=== PATIENT | male | born 1940 | race Caucasian/White ===

== ENCOUNTER → 2018-04-13 | Outpatient (CLI) | payer MEDICARE ==
[~2018-04-13] MED LIST: ASPIRIN81 M1 PO; CEFTIN250 MG PO; CIPROFLOXACIN500 MG PO; DAYPRO600 M1 PO; FLUOXETINE40 MG PO; LASIX40 MG PO; LISINOPRIL2.5 MG PO; PREDNICOT20 MG PO; PRILOSEC20 MG PO; PROPRANOL; PROPRANOLOL HC120 M1 PO; SYNTHROID,LEVO50 MCG PO; SYNTHROID,LEVO75 MCG PO; TOPROL XL50 MG PO; VIBRAMYCIN100 MG PO; VISKEN5 MG PO; VITAMIN D5000 I2 PO; ZESTRIL10 MG PO
== END | disposition home or self-care (01) ==
LOC: RAD 15:10
DX: M06.871 Other specified rheumatoid arthritis, right ankle and foot (principal)

== ENCOUNTER 2019-03-07 20:14 | Inpatient (IN) | payer OTHER ==
[~2019-03-07] VITALS: Ht 175.2 cm; Wt 72.1 kg
--- NOTE | ~2019-03-07 | PR ---
[place], [place] PROGRESS NOTE NAME: GENO RICHARDSON [facility] #: [id number] UNIT #: [id number] ROOM: 403 DOCTOR: CHRIS ALVARENGA MD BIRTHDATE: [birth year] DOS: 03/14/2019 SUBJECTIVE: The patient continues to feel better. He says he is eating better and taking more fluids. OBJECTIVE: VITAL SIGNS: Blood pressure 120/60, heart rate of 66 beats per minute, breathing 20 times per minute, temperature 98.2 degrees Fahrenheit. GENERAL APPEARANCE: The patient is alert and oriented x 3, in no visible distress. Generalized weakness. HEENT AND NECK: Sclerae are icteric. Jaundiced. CARDIOVASCULAR SYSTEM: Heart rate is regular in rate and rhythm. S1 and S2 normally audible. LUNGS: Clear to auscultation. ABDOMEN: Soft, nontender. No obvious organomegaly. Bowel sounds are present. EXTREMITIES: Without significant cyanosis or edema. IMPRESSION AND PLAN: 1. The patient with apparently metastatic malignant disease. Liver biopsies show cell atypia, atypical cells. The patient is waiting to go to rehab and Oncology consult can be obtained to the snf. 2. Obstructive jaundice from liver malignancy. Overall improved liver enzymes and bilirubin. 3. Acute kidney failure of vasomotor type, resolved with hydration with intravenous fluids. 4. Adult failure to thrive. The patient is working with physical therapy. 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 5. Major depression, recurrent, moderate, being followed by Psychiatry. CHRIS ALVARENGA MD CM:PNTRANS [phone] CHRIS ALVARENGA MD 03/15/19 0001 interface
--- NOTE | ~2019-03-07 | CON ---
[place], [place] REPORT OF CONSULTATION [id number] #: [id number] ROOM: 403 DOCTOR: PHD RADHAMES PEREZ BIRTHDATE: [birth year] DOS: 03/08/2019 HISTORY OF PRESENT ILLNESS: The patient is an 78-year-old male referred by Dr. Bhagat to determine the appropriateness of placement on the [facility]. At the present time, the patient is on the 4th floor at [facility]. The patient's history is limited due to his condition. He reports that he is 3 or 4 times and has 8 children. He states that two or three of his children have that he cannot recall for sure. 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 He lives alone with neighbors checking on him. He states that he did not eat any food for a month and was lying on the floor for an undetermined amount of time before coming to the hospital. He denied alcohol and illegal drug use. He stated that he is a former smoker. PAST MEDICAL HISTORY: Per the patient's medical record, he has a history of congestive heart failure, hypothyroidism, rheumatoid arthritis, and hypertension. MEDICATIONS: Rocephin, [place]. The patient was lying comfortably in bed, in no apparent distress. He was awake, alert and oriented to person and place. He gave the month as February and the year as 2018. He could name Yomi as the current president, but gave Eddie as the past president. He could not name any current events. Mood was "very depressed." Affect was blunted. He denied current suicidal ideation, but acknowledged feeling as though he wanted to kill himself a few days ago. He now endorsed passive thoughts of . He states that he would never kill himself due to his confucianist beliefs. He has seen a psychiatrist in the past to address his depression. He endorsed current symptoms such as hopelessness, helplessness, trouble staying asleep, poor appetite. He is very worried about his current health. Speech was soft and slow. Expressive and receptive language appeared within normal limits conversationally. The patient reported several times that he felt confused. There were some short and long-term memory gaps present in conversation. DIAGNOSIS: Major depressive disorder, recurrent, severe. PLAN: The patient states he would be agreeable to inpatient psychiatric treatment to address his significant levels of depression and passive suicidal thinking. I will continue to follow the patient as he is not medically stable at this time. Once he is medically stable, I will discuss the case with [facility] staff. Thank you very much for this consult and appropriate placement from a psychological prospective. [place], [place] REPORT OF CONSULTATION NAME: GENO RICHARDSON UNIT #: [id number] ROOM: 403 DOCTOR: BRENDA, PHD RADHAMES BIRTHDATE: [birth year] Anisha Perez, PhD CM:CONSTR:REPORT OF CONSULTATION 1453 03/08/19 2259 interface
--- NOTE | ~2019-03-07 | PR ---
[place], [place] PROGRESS NOTE NAME: GENO RICHARDSON UNIT #: [id number] ROOM: 403 DOCTOR: CHRIS ALVARENGA MD BIRTHDATE: [birth year] DOS: 03/09/2019 SUBJECTIVE: The patient quite weak, asking me to take care of him, and make medically related decisions for him because he does not have any durable medical power of corporate attorney and he is not in touch with his children and does not have any other close relatives. OBJECTIVE: GENERAL APPEARANCE: The patient is alert and oriented x 3, in no visible distress. Jaundice and generalized weakness. VITAL SIGNS: Blood pressure 96/74, heart rate of 56 beats per minute, breathing 18 times per minute, temperature 98 degrees Fahrenheit. HEENT AND NECK: Exam within normal limits. CARDIOVASCULAR SYSTEM: Heart rate is regular in rate and rhythm. S1 and S2 normally audible. LUNGS: Clear to auscultation. ABDOMEN: Soft, nontender. No obvious organomegaly. Bowel sounds are present. EXTREMITIES: Without significant cyanosis or edema. IMPRESSION: 1. Advanced adult failure to thrive. The patient is working with physical therapy. 2. Metastatic liver disease on CT scan of the abdomen with jaundice. Dr. Haas, the educational resource coordinator is following. Alpha fetoprotein elevated to more than 1000. 3. Acute hepatitis panel was negative. 4. Acute kidney failure, being treated with hydration. Nephrology is following. BUN and creatinine improved to 128 and 2.3 with normal serum electrolytes. 5. The patient has suicidal ideas, has agreed to go to [facility] for psych care after his medical treatment is complete. The patient is alert and oriented and he has asked me to make medically related decisions for him. [place], [place] PROGRESS NOTE NAME: GENO RICHARDSON UNIT #: [id number] ROOM: 403 DOCTOR: CHRIS ALVARENGA MD BIRTHDATE: [birth year] CHRIS ALVARENGA MD CM:PNTRANS [phone] CHRIS ALVARENGA MD 03/10/19 0256 interface
--- NOTE | ~2019-03-07 | PR ---
[place], [place] PROGRESS NOTE NAME: GENO RICHARDSON [facility] #: [id number] UNIT #: [id number] ROOM: 403 DOCTOR: PHD RADHAMES PEREZ BIRTHDATE: [birth year] DOS: 03/15/2019 SUBJECTIVE: I followed up with the patient regarding his depression. He reports that his mood has improved. He attributes his improvement to increased focus on his episcopalian beliefs. He states he convincingly denies suicidal ideation, plan, and intent. He continues to experience some passive suicidal ideation, but refocuses on his episcopalian beliefs to help distract him from this thought. Mood appeared to be less depressed. Affect was restricted in range. Discussed coping strategies for his depression and pain. Utilize CBT and supportive therapy interventions. The patient appeared to benefit. DIAGNOSIS: Major depressive disorder, recurrent, severe. PLAN: The patient's mood appears to have improved from last week. He is able to identify active coping strategies to deal with his depression. He appears to be appropriate to be discharged from a psychological perspective. Anisha Perez, PhD CM:PNTRANS [phone] PHD RADHAMES PEREZ 03/15/19 1510 interface
--- NOTE | ~2019-03-07 | WRIGHTHP ---
[place], [place] PATIENT HISTORY AND PHYSICAL EXAM NAME: GENO RICHARDSON [facility] #: [id number] UNIT #: [id number] ROOM: 403 DOCTOR: CHRIS ALVARENGA MD BIRTHDATE: [birth year] DOS: HISTORY OF PRESENT ILLNESS: The patient is an 78-year-old gentleman with a past medical history of: 1. Obesity. 2. Diastolic type congestive heart failure, chronic. 3. Rheumatoid arthritis. 4. Hypothyroidism. 5. Gastroesophageal reflux disease and esophagitis. 6. Vitamin D deficiency. 7. Benign essential hypertension. 8. Pacemaker placement for bradycardia. The patient presented to the Emergency Department at [facility] with generalized weakness, failure to thrive and he was found to be jaundiced, very weak and acute kidney failure and recommended for admission and further management by Dr. Nestor Khan. After admission, the patient says he has not been eating for about a month because he is unable to cook and he lives by himself and he has been progressively getting weaker. Some complaints of abdominal discomfort. REVIEW OF SYSTEMS: RESPIRATORY: No increasing shortness of breath. GASTROINTESTINAL: No complaint of nausea, vomiting, diarrhea, constipation. CARDIOVASCULAR SYSTEM: No complains of chest pains or palpitations. FAMILY HISTORY: Noncontributory. HOME MEDICATIONS: The patient does not remember his home medications. ALLERGIES: No known drug allergies. PHYSICAL EXAMINATION: GENERAL: Alert, oriented x 3, very weak and jaundiced. HEENT AND NECK: Extraocular movements are intact. Sclerae are anicteric. Oral mucosa is moist and clean. No obvious facial weakness. Neck is supple without any lymphadenopathy. No thyromegaly. No JVD. No carotid arterial bruits. LUNGS: Clear to auscultation. No wheezing. No rhonchi. CARDIOVASCULAR SYSTEM: Heart rate is regular in rate and rhythm. S1 and S2 normally audible. No significant murmur or any other abnormal cardiac sounds. ABDOMEN: Some generalized abdominal discomfort on palpation. EXTREMITIES: Without significant cyanosis or edema. Warm to touch. CENTRAL NERVOUS SYSTEM: Alert and oriented x 3. Cranial nerves II-XII are intact. Speech is normal. The patient is able to move all extremities. Normal muscle strength. Deep tendon reflexes are equal on both sides. Plantars were downgoing. LABORATORY DATA: White cell count of 11,000, hemoglobin 11.7, BUN and creatinine 148 and 3.2, bilirubin elevated to 4.7, elevated AST 446, ALT 358, alkaline phosphatase 473. [place], [place] PATIENT HISTORY AND PHYSICAL EXAM NAME: GENO RICHARDSON UNIT #: [id number] ROOM: 403 DOCTOR: CHRIS ALVARENGA MD BIRTHDATE: [birth year] IMPRESSION: 1. The patient with jaundice, elevated liver enzymes and bilirubin. I have consulted catalyst unit operator, Dr. Haas to see and I ordered ultrasound of the liver, abdomen and pelvis for further evaluation. The patient to be hydrated with normal saline and diet as tolerated. 2. Acute hepatitis, being checked with acute hepatitis panel and to be followed closely. INR elevated at 1.7, signs of acute liver failure. 3. Acute kidney failure. Nephrology consulted. The patient is being hydrated slowly, possible hepatorenal syndrome. 4. Adult failure to thrive. The patient is living by himself and unable to take care of himself. director of perioperative services and case management have been consulted. 5. Some suicidal ideas. Psychiatry and psych social services aide have been consulted. 6. No significant signs of urinary infection. CT scan of the head without any acute changes. Ammonia level was normal. 7. Lactic acid level elevation 2.3, treated with hydration with normal saline. CHRIS ALVARENGA MD CM:HISPHYS:PATIENT HISTORY AND PHYSICAL EXAMINATION 1119 [id number] CHRIS ALVARENGA MD 03/08/19 1448 interface
--- NOTE | ~2019-03-07 | PR ---
[place], [place] PROGRESS NOTE NAME: GENO RICHARDSON [facility] #: [id number] UNIT #: [id number] ROOM: 403 DOCTOR: PHD RADHAMES PEREZ BIRTHDATE: [birth year] DOS: 03/09/2019 SUBJECTIVE: I followed up with the patient regarding his depression. He states that he is depressed. He states that he is "depressed and numb" The patient appeared despondent. He continued to endorse passive suicidal ideation. He denied active suicidal ideation, plan, and intent. Discussed events. Discussed how his feelings of helplessness and hopelessness are contributing to his emotional status and ways he can help feel more in control in the situation utilized CBT and supportive therapy interventions. The patient appeared to benefit. ASSESSMENT: Major depressive disorder, recurrent, severe. PLAN: I will follow up with the patient on Wednesday and if he has any behavioral health needs before then, please contact the [facility]. Thank you very much for this consult. Anisha Perez, PhD CM:EDELMIRA [phone] PHD RADHAMES PEREZ 03/10/19 0108 interface
--- NOTE | ~2019-03-07 | PR ---
[place], [place] PROGRESS NOTE NAME: GENO RICHARDSON [facility] #: [id number] UNIT #: [id number] ROOM: 403 DOCTOR: GARFIELD RODRIGUES MD BIRTHDATE: [birth year] DOS: SUBJECTIVE: The patient is tired, does not have any new complaints. PHYSICAL EXAMINATION: VITAL SIGNS: Blood pressure is 103/53, pulse of 66, respirations 18, temperature 98.0. LUNGS: Diminished breath sounds. HEART: Regular. ABDOMEN: Obese, soft, nontender. EXTREMITIES: Without any edema. LABORATORY DATA: This morning shows a glucose of 95, BUN 71, creatinine 1.48, sodium 147, potassium 3.8, chloride 118, bicarbonate 22, SGOT 210, SGPT 162, alkaline phosphatase 406. WBC count is 7.6, hemoglobin 10.1, hematocrit 32.5, platelets 128. ASSESSMENT AND PLAN: 1. Diffuse mets to the liver. This is most likely primary colon cancer versus primary liver cancer. Liver biopsy was ordered yesterday. No pathology available. 2. Adult failure to thrive, may require short term SNF placement. Social Service will be consulted. 3. History of major depression with suicidal tendencies, was seen by Psych. Initial suggestion was to go to Behavioral Health Unit, await for psych decision on discharge planning. GARFIELD RODRIGUES MD CM:PNTRANS [phone] GARFIELD RODRIGUES MD 03/11/19 1515 interface
--- NOTE | ~2019-03-07 | PR ---
[place], [place] PROGRESS NOTE [id number] #: [id number] ROOM: 403 DOCTOR: GARFIELD RODRIGUES MD BIRTHDATE: [birth year] DOS: 03/12/2019 SUBJECTIVE: The patient is about the same, does not have any new complaints. OBJECTIVE EXAMINATION: GENERAL: He is awake and alert and oriented. VITAL SIGNS: Pressure is 117/66, pulse of 80, respirations 18, temperature 98.5. LUNGS: Clear. HEART: Regular. ABDOMEN: Soft. EXTREMITIES: Without any edema. ASSESSMENT AND PLAN: 1. Metastatic liver disease. Liver biopsy was done and pending. 2. Adult failure to thrive. He would benefit from long-term placement. He does not have any close family members. Social Service will be consulted for placement. 3. Major depression. Dr. Taylor does not think he is a candidate for admission to [facility]. GARFIELD RODRIGUES MD CM:PNTRANS [phone] GARFIELD RODRIGUES MD 03/12/192105 interface
--- NOTE | ~2019-03-07 | CON ---
[place], [place] REPORT OF CONSULTATION [id number] UNIT #: [id number] ROOM: 403 DOCTOR: TAJ DUQUE MDPARLIERMELINA BIRTHDATE: [birth year] DOS: 03/10/2019 GASTROENDOSCOPIC CONSULTATION REPORT HISTORY OF PRESENT ILLNESS: The patient has presented with lethargy and unresponsiveness, not caring for herself with elevated INR of 1.7, serum ammonia normal, lactic acid elevation with white blood cells of 13, H and H of 12 and 37, platelets of normal, comprehensive metabolic panel of renal failure, BUN of 157, creatinine 3.3 with abnormal liver function test, SGOT and SGPT of 500 and 400 respectively, and alkaline phosphatase of [address] scan of the head had no acute intracranial abnormality. CBC and comprehensive metabolic panel repeatedly reviewed and assessed. He was concerned about presence of masses in the liver. Alpha-fetoprotein was ordered and marker was 1014 consistent with hepatoma. Liver biopsy for confirmation was discussed with Radiology, Dr. Moreno, and that was already performed today and suspected to be positive. His supportive therapy has led to significant improvement of his BUN and creatinine. His CBC differential has stabilized, more hydrated, more alert, and more oriented, all has been recognized. His viral hepatitis has been negative. He lives by himself, and apparently, a lonely life. PAST MEDICAL HISTORY: Hypothyroidism, hypertension, GERD, and as identified above, chronic renal failure and liver masses. SOCIAL HISTORY: Nonsmoker, nonalcohol consumer, he says. ALLERGIES: To no known medication. MEDICATION LIST: Reviewed. REVIEW OF SYSTEMS: HEENT: Denies double vision or blurred vision. RESPIRATORY: Denies acute shortness of breath. CARDIOVASCULAR: Denies acute chest pain. DIGESTIVE SYSTEM: No hematemesis, no hematochezia. PHYSICAL EXAMINATION: VITAL SIGNS: Stable. HEENT: Head is normocephalic, nontraumatic. Mouth and buccal mucosa benign. NECK: Supple. No thyromegaly, no cervical lymphadenopathy. CHEST: Symmetric anatomy, equal expansion. HEART: Normal sinus rhythm. No gallop, no murmur. ABDOMEN: Obese, large, soft. No hepato-organomegaly. Bowel sounds present. EXTREMITIES: 1+ pedal edema. NEUROLOGIC: Alert and oriented to time, place, and person. IMPRESSION: Liver mass consistent with hepatoma and renal failure. Biopsies from the liver done. Alpha-fetoprotein in 1999 noticed. Renal improvement noticed. Hydration has occurred. PLAN AND DISCUSSION: Supportive care. [place], [place] REPORT OF CONSULTATION NAME: GENO RICHARDSON UNIT #: [id number] ROOM: [facility] DOCTOR: DERIC DUQUE MD BIRTHDATE: [birth year] DERIC DUQUE MD CM:CONSTR:REPORT OF CONSULTATION 1808 03/29/19 1400 interface
--- NOTE | ~2019-03-07 | PR ---
[place], [place] PROGRESS NOTE NAME: GENO RICHARDSON [facility] #: [id number] UNIT #: [id number] ROOM: 403 DOCTOR: CHRIS ALVARENGA MD BIRTHDATE: [birth year] DOS: 03/13/2019 SUBJECTIVE: The patient is an 78-year-old gentleman with liver mass and declining health. Overall feeling better with treatment with hydration, still not eating well. OBJECTIVE: VITAL SIGNS: Blood pressure 110/56, heart rate 61 beats per minute, breathing 20 times per minute, afebrile. GENERAL APPEARANCE: The patient is alert and oriented x 3, in no visible distress. HEENT AND NECK: Exam within normal limits. CARDIOVASCULAR SYSTEM: Heart rate is regular in rate and rhythm. S1 and S2 normally audible. LUNGS: Clear to auscultation. ABDOMEN: Soft, nontender. No obvious organomegaly. Bowel sounds are present. EXTREMITIES: Without significant cyanosis or edema. IMPRESSION: 1. The patient apparently with liver cancer, status post biopsy, results are pending. Alpha fetoprotein more than 1000. Liver enzymes have improved with hydration. Bilirubin is down to 2, AST 147, ALT 104, alkaline phosphatase 443. The patient also showing signs of liver failure with elevation of INR. 2. Acute kidney failure, vasomotor type, improved with hydration. 3. Adult failure to thrive. The patient working with physical therapy. 4. Major depression, recurrent, moderate, being followed by Psychiatry. CHRIS ALVARENGA MD CM:PNTRANS [phone] CHRIS ALVARENGA MD 03/14/19 0033 interface
--- NOTE | ~2019-03-07 | EKG ---
[place], [place] ELECTROCARDIOGRAM REPORT NAME: GENO RICHARDSON UNIT #: [id number] ROOM: 403 DOCTOR: ELIZABET DRAFT REPORT BIRTHDATE: [birth year] [facility] Test Date: 2019-03-07 Test Time: 20:32:27 Pat Name: GENO RICHARDSON Department: Room: 403 Gender: M [employer] Superintendent: Bridgette Plata : 1940 Requested By: JUAN ANTONIO GALDAMEZ Order Number: [id number] Reading MD: Pierre James Measurements Intervals [place] Rate: 74 P: 0 ME: 41 QRS: -56 QRSD: 190 T: 100 QT: 553 QTc: 614 Interpretive Statements Intermittent Atrial paced Ventricular paced Electronically Signed On 03-08-2019 11:03:48 PDT by Pierre James CM:EKGRPT:ELECTROCARDIOGRAM REPORT 31 1103 JUAN ANTONIO WHITTEN DRAFT REPORT JUAN ANTONIO GALDAMEZ DO
--- NOTE | ~2019-03-07 | DS ---
[place], [place] DISCHARGE SUMMARY NAME: GENO RICHARDSON [facility] #: [id number] UNIT #: [id number] ROOM: 403 DOCTOR: CHRIS ALVARENGA MD BIRTHDATE: [birth year] DOS: 03/15/2019 DISCHARGE DIAGNOSES: 1. Probable metastatic liver disease with liver masses. 2. Obstructive jaundice from multiple masses in the liver. Liver biopsy only showed atypical cells. 3. Significant weight loss, generalized weakness and adult failure to thrive. The patient is currently living at home and not being able to manage by himself. He could not even get food. 4. Acute kidney failure, vasomotor type recovered from hydration with normal saline. 5. Major depression, recurrent, moderate. 6. Diastolic type congestive heart failure, chronic. 7. Rheumatoid arthritis. 8. Hypothyroidism. 9. Severe protein-calorie malnutrition. 10. Vitamin D deficiency. 11. Benign essential hypertension. 12. Pacemaker placement for bradycardia in the past. HOSPITAL COURSE: The patient presented to the Emergency Department at [facility] with generalized weakness, failure to thrive, very weak and jaundiced, weight loss and not eating hardly anything for about a month because he was unable to take care of himself. The patient was found to be jaundiced with multiple masses in the liver, which appears like metastatic malignant disease. The patient has liver enzymes and bilirubin elevation. Dr. Haas, the license distributor was consulted and liver biopsy was ordered. Alpha fetoprotein was elevated more than 1000. Liver biopsy only showed atypical cells. If the patient desires, he should go for an oncology consult at the [facility] to see oncologist for his opinion on further management of this disease. Adult failure to thrive, ambulatory dysfunction. The patient worked with physical therapy and is still too weak to walk properly. Liver failure. INR elevated to 1.7 from liver tumors. Acute kidney failure, vasomotor type, resolved with hydration, normal saline. Silver Solution Mixer, Dr. Mott followed the patient. Anemia of chronic disease. Hemoglobin at 9.3. AST, ALT elevated to 147 and 104 and bilirubin to too much improved from admission. Alkaline phosphatase elevated at 443. DISCHARGE MANAGEMENT: The patient is on Vicodin 10 mg every 6 hours p.r.n. for pain. [place], [place] DISCHARGE SUMMARY NAME: GENO RICHARDSON UNIT #: [id number] ROOM: 403 DOCTOR: CHRIS ALVARENGA MD BIRTHDATE: [birth year] CHRIS ALVARENGA MD CM:MADELAINEARG 1105 [id number] CHRIS ALVARENGA MD 03/15/19 1148 interface
--- NOTE | ~2019-03-07 | PR ---
[place], [place] PROGRESS NOTE [id number] UNIT #: [id number] ROOM: 403 DOCTOR: CHRIS ALVARENGA MD BIRTHDATE: [birth year] DOS: 03/10/2019 SUBJECTIVE: The patient is awake, alert, quite weak, and not eating much, is going for liver biopsy today. OBJECTIVE: GENERAL APPEARANCE: The patient is alert and oriented x 3, in no visible distress. The patient has jaundice. VITAL SIGNS: Blood pressure 98/68, heart rate 68 beats per minute, breathing 17 times per minute, temperature 98.3 degrees Fahrenheit. HEENT AND NECK: Exam within normal limits. CARDIOVASCULAR SYSTEM: Heart rate is regular in rate and rhythm. S1 and S2 normally audible. LUNGS: Clear to auscultation. ABDOMEN: Soft, nontender. No obvious organomegaly. Bowel sounds are present. EXTREMITIES: Without significant cyanosis or edema. IMPRESSION: 1. The patient with apparently metastatic liver cancer disease with jaundice and liver failure, with elevated INR, with poor prognosis, and is going for a liver biopsy to confirm the malignancy. Alpha fetoprotein elevated more than 1000. 2. Advance adult failure to thrive. The patient is working with physical therapy and we are taking bedsore precautions. 3. Severe protein-calorie malnutrition with an albumin level of only 1.4. The patient was working with dietary, not eating much, and I will continue to hydrate him. 4. Suicidal ideas for which the patient is working with Psychiatry and is qualified for transfer to [facility]. CHRIS ALVARENGA MD CM:PNTRANS [id number] CHRIS ALVARENGA MD 03/10/19 1233 interface
--- NOTE | ~2019-03-07 | PR ---
[place], [place] PROGRESS NOTE [id number] UNIT #: [id number] ROOM: 403 DOCTOR: DERIC DUQUE MD BIRTHDATE: [birth year] DOS: 03/13/2019 HISTORY OF PRESENT ILLNESS: An 78-year-old patient who presented with multiple medical issues among which was his abnormal liver function test, large hepatoma was identified. Alpha fetoprotein level was done greater than 1000 recorded. Liver biopsy has been done 2 days ago, results are pending. Blood cultures no growth. Comprehensive metabolic panel remains with abnormality of LFTs, which is expected to be so. His latest H and H is 9 and 30 with platelets of 119. PAST MEDICAL HISTORY: Associated with peripheral vascular disease as well as chronic renal insufficiency, gastroesophageal reflux, hypothyroidism, hypertension, and hepatoma. Dr. Chaney and I had discussion regarding possibility of conservative therapy versus transfer of the patient to [place]; however, a CT scan of the liver that has been taken few days ago, has been consistent with multiple large hypodense lesions in the liver, metastatic malignancy was expected, has been cirrhotic liver. I was on and liver biopsies followed up has occurred. Since there is suspected metastasis and if the biopsies of the liver comes back hepatoma positive, his chance of survival of the disease would be a very limited and a conservative comfort measure would provide serve him best rather than ending up with a reassessment and reevaluation again different institution which is not going to change the outcome of the disease. Therefore, I recommend to keep the patient here until alf arrangement can be placed for the patient. Awaiting liver biopsy results. DERIC DUQUE MD CM:PNTRANS [phone] DERIC DUQUE MD 03/13/192114 interface
[2019-03-07 20:14] VITALS: BP 101/64
--- NOTE | 2019-03-07 20:57 | NUR ---
Patient prompted for urine specimen and reports he is unable to urinate at this time. Will continue to monitor.
[2019-03-07 21:07] LABS: HEMATOCRIT 37.6 % (42.0-52.0); HEMOGLOBIN 12.2 g/dl (14.0-18.0); MEAN CELL VOLUME 82.5 fl (80.0-94.0); MEAN CORPUSCULAR HGB 26.8 pg (27.0-31.0); MEAN CORPUSCULAR HGB CONC 32.4 g/dl (33.0-37.0); MEAN PLATELET VOLUME 10.7 fl (9.6-12.3); NUCLEATED RED BLOOD CELL 0.1 10*3/uL (0.0-0.0); NUCLEATED RED BLOOD CELL 0.5 % (0.0-0.0); PLATELET COUNT AUTOMATED 280 10*3/uL (130-400); RED BLOOD COUNT 4.56 10*6/uL (4.50-5.90); RED CELL DISTRI WIDTH 17.2 % (0-14.5); WHITE BLOOD COUNT 13.3 10*3/uL (4.8-10.8)
--- NOTE | 2019-03-07 21:13 | NUR ---
Dr. Khan notified of critical Lactic Acid of 2.3.
[2019-03-07 21:20] LABS: ACT PARTIAL THROMBO TIME 31.9 SECONDS (20.8-31.5); INTERNATIONAL NORM RATIO 1.7 (2.0-3.5)
[2019-03-07 21:26] VITALS: BP 115/46
[2019-03-07 21:26] LABS: ALBUMIN 1.4 gm/dl (3.1-4.5); ALKALINE PHOSPHATASE 527 U/L (45-117); CHLORIDE 98 mmol/L (98-107); CPK 72 U/L (39-308); CREATININE 3.36 mg/dL (0.70-1.30); PLATELET SUFFICIENCY NORMAL (NORMAL); POTASSIUM 4.1 mmol/L (3.5-5.1); SGOT/AST 536 IU/L (3-35); SGPT/ALT 414 U/L (12-78); SODIUM 133 mmol/L (136-145); TOTAL CELLS COUNTED 100 #CELLS
[2019-03-07 21:28] LABS: TROPONIN I < 0.015 ng/ml (<0.045)
[2019-03-07 21:50] LABS: BUN 157 mg/dl (7-24)
[2019-03-07 22:59] VITALS: BP 103/36
[2019-03-07 23:58] VITALS: BP 116/66
--- NOTE | 2019-03-08 02:08 | NUR ---
MEDICATED WITH PRN VICODEN FOR 6/10 PAIN "ALL OVER".
--- NOTE | 2019-03-08 02:40 | NUR ---
VICODEN EFFECTIVE WILL CONTINUE TO MONITOR.
[2019-03-08 03:47] LABS: BILIRUBIN 2+ (NEGATIVE); BLOOD NEGATIVE (NEGATIVE); CLARITY CLEAR (CLEAR); COLOR YELLOW (YELLOW); GLUCOSE NEGATIVE (NEGATIVE); KETONE NEGATIVE (NEGATIVE); LEUKO ESTERASE NEGATIVE (NEGATIVE); NITRITE NEGATIVE (NEGATIVE)
[2019-03-08 04:07] LABS: BACTERIA TRACE; COARSE GRANULAR CAST 0-2; FINE GRANULAR CAST 0-2; RBC 0-2 rbc/hpf (0-2)
[2019-03-08 07:03] LABS: BASO % 0.4 % (0.0-1.0); EOS % 0.3 % (1.0-4.0); HEMATOCRIT 36.2 % (42.0-52.0); HEMOGLOBIN 11.7 g/dl (14.0-18.0); LYMPH # 1.1 10*3/uL (1.3-4.4); LYMPH % 9.7 % (27.0-41.0); MEAN CELL VOLUME 82.5 fl (80.0-94.0); MEAN CORPUSCULAR HGB 26.7 pg (27.0-31.0); MEAN CORPUSCULAR HGB CONC 32.3 g/dl (33.0-37.0); MEAN PLATELET VOLUME 11.1 fl (9.6-12.3); MONO # 0.5 10*3/uL (0.1-1.0); MONO % 4.2 % (3.0-9.0); NEUT # 9.4 10*3/uL (2.3-7.9); NEUT % 83.3 % (47.0-73.0); NUCLEATED RED BLOOD CELL 0.3 % (0.0-0.0); PLATELET COUNT AUTOMATED 221 10*3/uL (130-400); RED BLOOD COUNT 4.39 10*6/uL (4.50-5.90); RED CELL DISTRI WIDTH 17.2 % (0-14.5); WHITE BLOOD COUNT 11.2 10*3/uL (4.8-10.8)
[2019-03-08 07:17] LABS: ALBUMIN 1.3 gm/dl (3.1-4.5); CREATININE 3.21 mg/dL (0.70-1.30); PHOSPHOROUS 7.9 mg/dL (2.5-4.9); POTASSIUM 4.2 mmol/L (3.5-5.1); TOTAL PROTEIN 7.1 gm/dL (6.4-8.2)
--- NOTE | 2019-03-08 08:15 | NUR ---
Spoke to Dr. Bhagat. New orders received. Notified Becca Copeland of consult.
--- NOTE | 2019-03-08 08:30 | NUR ---
INSERTED SIMON CATH. WELL TOLERATED.
--- NOTE | 2019-03-08 09:00 | NUR ---
Fmd Teacher in to talk to patient. Patient states lives at home alone with his neighbors occasionally checking in on him. There are 1-2 steps in the home. Physician: Dr. Oswaldo Bhagat Pharmacy: [facility] health services: none Patient's level of ADLs: MODERATE ASSIST Patient has working utilities: yes DME: none Follow-up physician's appointment after d/c: he prefers to make his own follow up appt after discharge Does patient want to access PORTAL?: no Discharge plan discussed with patient. He lives at home with his neighbors occasionally checking in on him. He needs moderate assistance with his ADLs and ambulation. Discussed short term SNF and he is agreeable. He states he is unable to walk and is unsure of how long he laid on his floor for before his neighbor found him. 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 Discharge plan undecided at this time as there is a [facility] consult also. ALYX SIMON
[2019-03-08 12:00] VITALS: BP 112/51
--- NOTE | 2019-03-08 13:42 | NUR ---
attempted to speak with client two different times today, each time there was someone else in with client, i will attempt at a later time.
[2019-03-08 14:07] LABS: CREATININE 2.9 mg/dL (0.70-1.30); POTASSIUM 3.7 mmol/L (3.5-5.1)
[2019-03-08 16:00] VITALS: BP 100/70
--- NOTE | 2019-03-08 16:56 | NUR ---
PER DR. DUQUE VIA TELEPHONE OPRDER. CONSULT DR. WALLACE FOR SONAR GUIDED LIVER BIOPSY OF LIVERTXSS. WILL ORGANIZE WITH DR. WALLACE IN AM PER RADIOLOGY. WILL CONTINUE TO MONITOR PT
--- NOTE | 2019-03-08 17:00 | NUR ---
RAD CALLED FOR DR. WALLACE. RADIOLOGY STATES TO WAIT AND CALL IN AM TO GET A HOLD OF DR. WALLACE. WILL CONTINUE TO MONITOR PT
[2019-03-08 20:00] VITALS: BP 115/60
[2019-03-09] VITALS: BP 92/46
--- NOTE | 2019-03-09 | NUR ---
MEDICATED PT FOR PAIN. DEEP BREATHING AND COUGH EXERCISES INSTRUCTED. PT REPEATED. WILL CONTINUE TO MONITOR PT
--- NOTE | 2019-03-09 01:00 | NUR ---
PT RESTING AT THIS TIME. PAIN MED EFFECTIVE. WILL CONTINUE TO MONITOR PT
[2019-03-09 07:00] LABS: ALBUMIN 1.4 gm/dl (3.1-4.5); POTASSIUM 3.7 mmol/L (3.5-5.1)
[2019-03-09 07:04] LABS: CREATININE 2.36 mg/dL (0.70-1.30); TOTAL PROTEIN 6.9 gm/dL (6.4-8.2)
[2019-03-09 08:10] LABS: HEPATITIS B SURFACE AG Negative (Negative); HEPATITIS C VIRUS ANTIBODY 0.2 s/co (0.0-0.9)
--- NOTE | 2019-03-09 09:00 | NUR ---
Property Maintenance Technician in to see patient. No new needs or request at this time. When medically stable he will be discharged to [facility]. store planner following.
--- NOTE | 2019-03-09 10:20 | NUR ---
Nursing screen received and chart review completed. Patient admitted with ARF and failure to thrive as he has not taken meds for months, not eating and was found on floor by neighbor. When patient is medically stable, consider an OT referral for debilitation and discharge planning. Thank you. Nena Bishop OTR/Damián
[2019-03-09 12:00] VITALS: BP 103/62
[2019-03-09 16:00] VITALS: BP 93/54; BP 99/63
[2019-03-09 16:52] LABS: URINE CREATININE RANDOM 76.3 mg/dL
[2019-03-09 20:00] VITALS: BP 96/74
--- NOTE | 2019-03-09 20:14 | NUR ---
ASSUMED CARE OF PATIENT. PATIENT IS RESTING IN BED WITH EASY AND REGULAR RESPERS ON ROOM AIR. ASSESSMENT IS COMPLETE WITH NO C/O OR S/S OF DISTRESS NOTED AT THIS TIME. IV FLUIDS RUNNING PER ORDER. BED IS LOW, LOCKED, ALARMED, AND CALL LIGHT IS WITHIN REACH. SEE SHIFT ASSESSMENT.
[2019-03-10] VITALS (12 sets, daily range): BP systolic 98–147; BP diastolic 43–116
--- NOTE | 2019-03-10 01:19 | NUR ---
PATIENT IS RESTING IN BED WITH EASY AND REGULAR RESPERS ON ROOM AIR. BED IS ALARMED AND CALL LIGHT IS WITHIN REACH.
--- NOTE | 2019-03-10 09:00 | NUR ---
Emissions Technician in to see patient. No new needs or request at this time. When medically stable he will be discharged to [facility]. marine [employer] task force planners following.
[2019-03-10 09:39] LABS: INTERNATIONAL NORM RATIO 1.4 (2.0-3.5)
--- NOTE | 2019-03-10 11:30 | NUR ---
DR. DUQUE NOTIFIED OF PT/INR RESULTS AND DR. WALLACE HAS REVIEWED THE LABS ALSO AND IS READY FOR CT- LIVER BIOPSY SOON ORDERED. OBTAINED THE ORDER TO PROCEED WITH THE BIOPSY FROM DR. DUQUE.
[2019-03-10 11:51] LABS: BASO % 0.1 % (0.0-1.0); EOS # 0.2 10*3/uL (0.0-0.4); HEMATOCRIT 34.2 % (42.0-52.0); HEMOGLOBIN 10.7 g/dl (14.0-18.0); LYMPH # 0.8 10*3/uL (1.3-4.4); LYMPH % 10.4 % (27.0-41.0); MEAN CELL VOLUME 85.3 fl (80.0-94.0); MEAN CORPUSCULAR HGB 26.7 pg (27.0-31.0); MEAN CORPUSCULAR HGB CONC 31.3 g/dl (33.0-37.0); MONO # 0.3 10*3/uL (0.1-1.0); MONO % 3.7 % (3.0-9.0); NEUT # 6.2 10*3/uL (2.3-7.9); NEUT % 82.3 % (47.0-73.0); NUCLEATED RED BLOOD CELL 0.3 % (0.0-0.0); PLATELET COUNT AUTOMATED 132 10*3/uL (130-400); RED BLOOD COUNT 4.01 10*6/uL (4.50-5.90); RED CELL DISTRI WIDTH 17.7 % (0-14.5); WHITE BLOOD COUNT 7.6 10*3/uL (4.8-10.8)
[2019-03-10 12:04] LABS: CREATININE 1.69 mg/dL (0.70-1.30); POTASSIUM 3.7 mmol/L (3.5-5.1)
--- NOTE | 2019-03-10 13:20 | NUR ---
PATIENT TO RADIOLOGY FOR CT-GUIDED LIVER BIOPSY BY CART.
--- NOTE | 2019-03-10 14:10 | NUR ---
PATIENT RETURNED FROM LIVER BIOPSY PROCEDURE; RESUMING MEDS AND DIET AND OBTAINING VITAL SIGNS ORDERED, NO BLEEDING NOTED TO PUNCTURE SITE TO RIGHT ABDOMEN, HE REMAINS ALERT TO PERSON AND PLACE, IS ON BEDREST UNTIL 1800 THIS EVENING.
[2019-03-11] VITALS: BP 103/53
[2019-03-11 05:58] LABS: BASO % 0.1 % (0.0-1.0); EOS # 0.2 10*3/uL (0.0-0.4); HEMATOCRIT 32.5 % (42.0-52.0); HEMOGLOBIN 10.1 g/dl (14.0-18.0); LYMPH # 0.8 10*3/uL (1.3-4.4); LYMPH % 10.4 % (27.0-41.0); MEAN CELL VOLUME 86.9 fl (80.0-94.0); MEAN CORPUSCULAR HGB CONC 31.1 g/dl (33.0-37.0); MEAN PLATELET VOLUME 11.5 fl (9.6-12.3); MONO # 0.3 10*3/uL (0.1-1.0); MONO % 4.1 % (3.0-9.0); NEUT # 6.2 10*3/uL (2.3-7.9); PLATELET COUNT AUTOMATED 128 10*3/uL (130-400); RED BLOOD COUNT 3.74 10*6/uL (4.50-5.90); RED CELL DISTRI WIDTH 17.9 % (0-14.5); WHITE BLOOD COUNT 7.6 10*3/uL (4.8-10.8)
[2019-03-11 06:03] LABS: ALBUMIN 2.1 gm/dl (3.1-4.5); CREATININE 1.48 mg/dL (0.70-1.30); PHOSPHOROUS 2.8 mg/dL (2.5-4.9); POTASSIUM 3.7 mmol/L (3.5-5.1); TOTAL PROTEIN 6.5 gm/dL (6.4-8.2)
[2019-03-11 08:00] VITALS: BP 122/62
--- NOTE | 2019-03-11 11:25 | NUR ---
Out of bed to chair with moderate assistance.
[2019-03-11 12:00] VITALS: BP 111/43
[2019-03-11 16:00] VITALS: BP 134/57
[2019-03-11 20:00] VITALS: BP 135/112
--- NOTE | 2019-03-11 20:03 | NUR ---
ASSUMED CARE OF PATIENT. PATIENT IS RESTING IN BED WITH EASY AND REGULAR RESPERS ON ROOM AIR. ASSESSMENT IS COMPLETE WITH NO C/O OR S/S OF DISTRESS NOTED AT THIS TIME. BED IS LOW, LOCKED, AND ALARMED WITH CALL LIGHT WITHIN REACH. SEE SHIFT ASSESSMENT.
[2019-03-12] VITALS: BP 117/66
--- NOTE | 2019-03-12 05:06 | NUR ---
0600 ALBUMIN INFUSING AT THIS TIME, PATIENT IS TOLERATING WELL, CALL LIGHT IS WITHIN REACH.
[2019-03-12 05:59] LABS: BASO % 0.1 % (0.0-1.0); EOS # 0.1 10*3/uL (0.0-0.4); EOS % 1.7 % (1.0-4.0); HEMATOCRIT 29.6 % (42.0-52.0); LYMPH % 12.8 % (27.0-41.0); MEAN CELL VOLUME 87.1 fl (80.0-94.0); MEAN CORPUSCULAR HGB 26.5 pg (27.0-31.0); MEAN CORPUSCULAR HGB CONC 30.4 g/dl (33.0-37.0); MEAN PLATELET VOLUME 11.6 fl (9.6-12.3); MONO # 0.4 10*3/uL (0.1-1.0); NEUT # 5.9 10*3/uL (2.3-7.9); NEUT % 79.2 % (47.0-73.0); PLATELET COUNT AUTOMATED 109 10*3/uL (130-400); RED CELL DISTRI WIDTH 17.8 % (0-14.5); WHITE BLOOD COUNT 7.5 10*3/uL (4.8-10.8)
[2019-03-12 06:06] LABS: ALBUMIN 2.4 gm/dl (3.1-4.5); ALKALINE PHOSPHATASE 431 U/L (45-117); CHLORIDE 119 mmol/L (98-107); CREATININE 1.22 mg/dL (0.70-1.30); POTASSIUM 3.7 mmol/L (3.5-5.1); SGOT/AST 168 IU/L (3-35); SGPT/ALT 122 U/L (12-78); SODIUM 146 mmol/L (136-145); TOTAL PROTEIN 6.3 gm/dL (6.4-8.2)
[2019-03-12 06:07] LABS: BUN 48 mg/dl (7-24)
[2019-03-12 08:00] VITALS: BP 122/56
--- NOTE | 2019-03-12 08:00 | NUR ---
DR DUQUE CALLS UNIT. AM LABS AND INFO GIVEN. NO NEW ORDERS.
--- NOTE | 2019-03-12 08:24 | NUR ---
SPOKE WITH [facility] SHE STATES SHE SPOKE WITH DR GRAY AND UPON REVIEW OF CHART PT DOES NOT MEET CRITERIA FOR ADMISSION TO [facility]. DR RODRIGUES HERE AND NOTIFIED.
--- NOTE | 2019-03-12 11:00 | NUR ---
DR DURBIN ASKS THIS NURSE TO CALL DR OCAMPO. SHE STATES SHE AND THE PATIENT WOULD LIKE HIM TO COME SEE THE PT TODAY. DR OCAMPO PAGED VIA ANSWERING SERVICE.
--- NOTE | 2019-03-12 11:22 | NUR ---
DR OCAMPO CALLS UNIT, HE STATES HE WILL SEE PT LATER THIS AFTERNOON. DR DURBIN NOTIFIED.
[2019-03-12 12:00] VITALS: BP 100/52
[2019-03-12 16:00] VITALS: BP 105/52
[2019-03-12 20:00] VITALS: BP 111/51
[2019-03-13] VITALS: BP 120/54
[2019-03-13 06:13] LABS: BASO % 0.1 % (0.0-1.0); EOS # 0.1 10*3/uL (0.0-0.4); EOS % 2.1 % (1.0-4.0); HEMATOCRIT 30.9 % (42.0-52.0); HEMOGLOBIN 9.3 g/dl (14.0-18.0); LYMPH # 0.9 10*3/uL (1.3-4.4); LYMPH % 13.8 % (27.0-41.0); MEAN CORPUSCULAR HGB 26.5 pg (27.0-31.0); MEAN CORPUSCULAR HGB CONC 30.1 g/dl (33.0-37.0); MEAN PLATELET VOLUME 11.7 fl (9.6-12.3); MONO # 0.4 10*3/uL (0.1-1.0); MONO % 5.4 % (3.0-9.0); NEUT # 5.2 10*3/uL (2.3-7.9); NEUT % 77.4 % (47.0-73.0); PLATELET COUNT AUTOMATED 119 10*3/uL (130-400); RED BLOOD COUNT 3.51 10*6/uL (4.50-5.90); WHITE BLOOD COUNT 6.7 10*3/uL (4.8-10.8)
[2019-03-13 06:28] LABS: ALBUMIN 2.1 gm/dl (3.1-4.5); CHLORIDE 122 mmol/L (98-107); CREATININE 1.11 mg/dL (0.70-1.30); POTASSIUM 3.7 mmol/L (3.5-5.1); SGOT/AST 147 IU/L (3-35); SGPT/ALT 104 U/L (12-78); SODIUM 149 mmol/L (136-145)
[2019-03-13 06:29] LABS: ALKALINE PHOSPHATASE 443 U/L (45-117)
[2019-03-13 06:36] LABS: BUN 35 mg/dl (7-24)
[2019-03-13 08:00] VITALS: BP 128/84
--- NOTE | 2019-03-13 08:26 | NUR ---
PHYSICAL THERAPY Nursing screen received. PT orders also received. Thank you. Kathy Lugo,PT
--- NOTE | 2019-03-13 09:00 | NUR ---
Bottom Buffer in to see patient. Discussed short term SNF and he is agreeable. When given a list of facilities within his insurance he chose [facility] in [place]. supply planner notified. Informed Dr. Olayinka WOO paperwork was provided to his friend.
--- NOTE | 2019-03-13 09:03 | NUR ---
GENO RICHARDSON [id number] Please refer to the physician's history and physical for past medical history, comorbid conditions, and allergies. Diagnosis: ARF, FAILURE TO THRIVE Hawk Score: 13,MODERATE RISK WOUND DESCRIPTIONS: Patient's left buttocks, right buttocks and coccyx is red and blanchable at time of assessment. No open areas noted at time of assessment. No drainage noted at time of assessment. Nurse caring for patient stated that he was down for extended period of time before being found by his neighbors. Surface the patient is resting on: Isoflex SKIN PREVENTION RECOMMENDATION: 1. Pressure redistribution support surface as appropriate 2. Elevate heels 3. Remove boots/TEDS every shift and reapply 4. Head of bed 30 degrees as tolerated 5. Assess nutrition and hydration 6. Manage moisture 7. Avoid the use of containment devices while in bed 8. Use absorptive products on surfaces limit layers of linens on bed 9. Turn and reposition every 1-2 hours in bed and every 1 hour in chair as tolerated 10. Weight shifts every 15 minutes while up in chair 11. Offloading with pillows or device to keep heels elevated off bed 12. Monitor skin at least every shift 13. Inspect under medical devices twice a day WOUND TREATMENT RECOMMENDATIONS: Cleanse right buttocks, left buttocks and coccyx with soap and water and apply hydraguard every shift and prn for soiling. Wheelchair cushion when oob.
--- NOTE | 2019-03-13 09:10 | NUR ---
PHYSICAL THERAPY Patient evaluated on 4, full evaluation to follow. Continue with PT as per plan of care with fall, 02, alarm, ma x(A) x 2, vertigo and acute debility precautions. Will require SNF. PAtient is high complexity via chart review, tests and evaluation: [id number]. Thank you for this referral. Kathy Lugo,PT
--- NOTE | 2019-03-13 10:07 | NUR ---
Occupational Therapy evaluation completed on the 4th floor with full eval to follow. High complexity level. PRecautions: vertigo, fall risk, mod Ax2, IV site. Work on sitting and standing balance, education on safety with transfers, bed mobility, strengthening. recommend SNF. Thank you for this referral, Gabi Grossman OTR/Damián
--- NOTE | 2019-03-13 10:41 | NUR ---
Patient requesting a referral to the [facility]. Contacted facility and faxed referral. requires precert.
[2019-03-13 12:00] VITALS: BP 113/60
--- NOTE | 2019-03-13 13:50 | NUR ---
OT NOTE Pt was seen this P.M. 1:1 for 20 minute OT session. Upon arrival pt was supine in bed. Pt identified by name and and had complaints of dizziness. Before sitting upright educated pt on transferring slowly and using visual fixation technique. Pt transferred supine to sit EOB with modA X 2. Upon inital rise pt had complaints of increased dizziness. While sitting EOB challenged pt's sitting balance needed for increased I and enhanced safety, pt was able to maintain F+ sitting balance. Challenged pt's static standing tolerance needed for increased I in self care tasks and functional transfers. Pt was able to tolerate aprox 3 minutes at a time before sitting due to fatigue. Throughout entire session pt had complaints of dizziness and had poor caryr over with visual fixation. Pt transferred back into bed sit to supine with maxA X 2. There he was left with call light in hand, tray table inplace, and bed alarm activated for safety. Continue with rec D/C plan to SNF. MARISA Esqueda/Damián
--- NOTE | 2019-03-13 14:05 | NUR ---
PHYSICAL THERAPY informed consent given, pt identified by name and . pt presented supine in bed. supine to sit modA, pt experienced dizziness, static sitting balance 3min EOB no LOB presented. STS and stand to sit x2 trials Jose v/c safe hand placement to avoid injury. Static standing balance CGA 3min x1, 1min x1 seated rests in between, no LOB presented. pt c/o if dizziness with both trials. Sit to supine: v/c to bring feet into bed at the same time as trunk for a smooth movement to avoid dizziness modA. bed mobility maxAx2. ended treatment pt supine in bed, call light and belongings in reach, bed alarm on. 1:1 treatment with BINDERY MACHINE SETTER 20min. KUMAR PEREZ BINDERY MACHINE SETTER
--- NOTE | 2019-03-13 14:41 | NUR ---
SIMON REMOVED PER ORDERS. PT TOLERATED WELL. CALL LIGHT IN REACH. URINAL PROVIDED.
[2019-03-13 16:00] VITALS: BP 110/56
[2019-03-13 20:00] VITALS: BP 120/62
--- NOTE | 2019-03-13 20:20 | NUR ---
ASSESSMENT COMPLETED. SEE ASSESSMENT INTERVENTION. NO SIGNS OR SYMPTOMS OF DISTRESS. VOICES NO CONCERNS AT THIS TIME. RESPIRATIONS EASY NONLABOURED.
[2019-03-14] VITALS: BP 117/47
--- NOTE | 2019-03-14 03:41 | NUR ---
LYING IN BED EYES CLOSED. NO SIGNS OR SYMPTOMS OF DISTRESS. RESPIRATIONS EASY NONLABOURED. BED ALARM ON. BIPAP ON.
[2019-03-14 08:00] VITALS: BP 126/70
--- NOTE | 2019-03-14 08:00 | NUR ---
Triple Drum Operator in to see patient. No new needs or request at this time. When medically stable and auth is received he will be discharged to [facility]. convention planner following.
--- NOTE | 2019-03-14 08:56 | NUR ---
OT NOTE Pt was seen this A.M. 1:1 for 16 minute OT session. Upon arrival pt was supine in bed. Pt identified by name and and had complaints of "all over pain" when asked to rate on 0-10 pain scale pt stated "I don't know how to describe it." Pt transferred supine to sit EOB with modA X 2 and education on bed mobility techniques for increased I. Upon inital rise pt had reports of increased dizziness. Educated pt on visual fixation technique and pt had poor carry over throughout. Multiple sit to stand transfers completed from bed level with Jose and use of w/w for UE support. Challenged pt's static standing tolerance needed for increased I in self care tasks and functional transfers and pt was able to tolerate aprox 1-2 minutes at a time before sitting due to fatigue. While standing challenged pt's dynamic standing balance needed for increased I and enhanced safety and pt was able to maintain F- standing balance throughout, pt was able to tolerate standing unsupport for aprox 45 seconds before quick onset of fatigue resulting in a seated rest break. Pt transferred into the recliner with CGA and use of w/w. There he was left with call light in hand, tray table in place, and body alarm on for safety. Continue with rec D/C plan to SNF. MARISA Esqueda/Damián
--- NOTE | 2019-03-14 09:05 | NUR ---
PHYSICAL THERAPY informed consent given, pt identified by name and . pt presented supine in bed. supine to sit modA, rested 1 min after sitting up d/t c/o dizziness. STS and stand to sit x3 trials modA v/c safe hand placement to avoid injury. Static standing balance 55sec x1, 1min 53 sec x1, seated rests in between Jose 1 retrograde LOB. Walked 6ft wh walker Jose, v/c keep feet inside JL of walker and to avoid picking up wh walker. Ended treatment pt sitting in chair, call light and belongings in reach, chair alarm on. 1:1 treatment with CONTACT LENS TECHNICIAN 18min. KUMAR PEREZ CONTACT LENS TECHNICIAN
--- NOTE | 2019-03-14 09:19 | NUR ---
PT STATES HE HAS "ALL OVER PAIN" BUT DENIES ANY NEED FOR PAIN MEDICATIONS. OFFERED NORCO. STATES IT HASN'T "TOUCHED HIS PAIN." NO FURTHER COMPLAINTS. EATING BREAKFAST WITH CALL LIGHT IN REACH, IVF GOING.
[2019-03-14 12:00] VITALS: BP 107/61
[2019-03-14 13:06] LABS: CHLORIDE 114 mmol/L (98-107); POTASSIUM 3.5 mmol/L (3.5-5.1); SODIUM 143 mmol/L (136-145)
[2019-03-14 13:09] LABS: BUN 25 mg/dl (7-24)
--- NOTE | 2019-03-14 14:45 | NUR ---
SLEEPING. NO SXS OF DISTRESS. RESPERATIONS EASY/REGULAR. NSR PACED IN 70s PER CM.
[2019-03-14 16:00] VITALS: BP 119/59
--- NOTE | 2019-03-14 17:05 | NUR ---
LAYING IN BED. NO VOICED COMPLAINTS. CALL LIGHT IN REACH. PT STATES HE IS WAITING ON DINNER TO ARRIVE.
--- NOTE | 2019-03-14 19:25 | NUR ---
COMPLAINTS OF PAIN "ALL OVER" 8 OUT OF 10. PRN MORPHINE GIVEN.
[2019-03-14 20:00] VITALS: BP 110/86
--- NOTE | 2019-03-14 20:55 | NUR ---
ASSESSMENT COMPLETED. SEE ASSESSMENT INTERVENTION. NO SIGNS OR SYMPTOMS OF DISTRESS. VOICES NO CONCERNS AT THIS TIME. RESPIRATIONS EASY NONLABOURED ON RA.
--- NOTE | 2019-03-14 21:55 | NUR ---
PRN MORPHINE REASSESSMENT 04/07 NOW.
[2019-03-15] VITALS: BP 133/64
--- NOTE | 2019-03-15 01:55 | NUR ---
LYING IN BED EYES CLOSED. NO SIGNS OR SYMPTOMS OF DISTRESS. RESPIRATIONS EASY NONLABOURED ON ROOM AIR.
[2019-03-15 08:00] VITALS: BP 118/64
--- NOTE | 2019-03-15 09:00 | NUR ---
OT NOTE Attempted to see pt this A.M. for OT session and upon arrival pt was supine in bed. Pt had complaints of chest tightness and all over pain. Notified pt's nurse Nolvia who stated she was going to give his A.M. medicine, requesting to hold till that is done. Will continue with POC as able. MARISA Esqueda/Damián
--- NOTE | 2019-03-15 09:42 | NUR ---
SPOKE WITH DR ALVARENGA RE: NORCO RENEWAL. ORDERS RECEIVED. HE ASKED IF AUTH WAS AVAILABLE FOR [facility]. SPOKE WITH CM. CM SAID IT'S NOT AVAILABLE AT THIS TIME, BUT SHOULD BE TODAY.
--- NOTE | 2019-03-15 10:05 | NUR ---
PT REQUESTED AND WAS MEDICATED WITH NORCO FOR C/O LOW BACK PAIN. CALL LIGHT IN REACH. WILL MONITOR.
--- NOTE | 2019-03-15 10:20 | NUR ---
Notified Dr. Bhagat of [facility] received for patient to go to [place].
--- NOTE | 2019-03-15 10:41 | NUR ---
Received auth for patient to go [facility] today if medically stable for discharge.
[2019-03-15] MEDS ORDERED: HYDROCODONE-AC1 EACH PO (11:02)
--- NOTE | 2019-03-15 11:10 | NUR ---
PT STATES MEDICATION EFFECTIVE. CALL LIGHT IN REACH. WILL MONITOR.
--- NOTE | 2019-03-15 11:27 | NUR ---
Patient is discharged to the [facility]. Transportation scheduled for 1:30PM with [facility]. NH, nursing/cemetery warden notified. Attemtped to notify Kanwal Elias (person to notify) but reached voicemail with a mailbox that is full. Unable to reach or leave message.
--- NOTE | 2019-03-15 13:11 | NUR ---
REPORT GIVEN TO GILDARDO AT [facility].
--- NOTE | 2019-03-15 13:37 | NUR ---
Discharge instructions reviewed with patient/family. Patient receptive and verbalizes understanding. Follow-up care arranged. Written instructions given to patient/family. EMMANUEL FARRIS
--- NOTE | 2019-03-15 15:56 | NUR ---
OCCUPATIONAL THERAPY CO-SIGN I approve of the Occupational Therapy notes written above. ISAIAS NOLASCO OTR/Damián
--- NOTE | 2019-03-16 07:32 | NUR ---
PHYSICAL THERAPY CO-SIGN I approve of the Phyical Therapy notes written above. DEVANTE RODRIGUEZ PT
== END 2019-03-15 13:42 | disposition other institution (70) | DRG 682 ==
LOC: ED 20:14 → 4E 22:23 → EDHOLD 22:23 → 4E 23:32
PROVIDERS: Internal Medicine Gastroenterology; Internal Medicine Nephrology; Student in an Organized Health Care Education/Training Program; ADMIT Internal Medicine
PROC: 0FB13ZX Excision of Right Lobe Liver, Percutaneous Approach, Diagnostic (ICD-10-PCS; principal; 2019-03-10)
DX: N17.0 Acute kidney failure with tubular necrosis (principal); E43 Unspecified severe protein-calorie malnutrition; B17.9 Acute viral hepatitis, unspecified; I50.32 Chronic diastolic (congestive) heart failure; F33.2 Major depressive disorder, recurrent severe without psychotic features; E87.1 Hypo-osmolality and hyponatremia; I13.0 Hypertensive heart and chronic kidney disease with heart failure and stage 1 through stage 4 chronic kidney disease, or unspecified chronic kidney disease; C22.0 Liver cell carcinoma; E88.09 Other disorders of plasma-protein metabolism, not elsewhere classified; R79.1 Abnormal coagulation profile; D63.8 Anemia in other chronic diseases classified elsewhere; E80.6 Other disorders of bilirubin metabolism; R74.0 Nonspecific elevation of levels of transaminase and lactic acid dehydrogenase [LDH]; N18.9 Chronic kidney disease, unspecified; I73.9 Peripheral vascular disease, unspecified; F41.9 Anxiety disorder, unspecified; K21.9 Gastro-esophageal reflux disease without esophagitis; E66.9 Obesity, unspecified; E03.9 Hypothyroidism, unspecified; R62.7 Adult failure to thrive; E55.9 Vitamin D deficiency, unspecified; Z95.0 Presence of cardiac pacemaker; Z79.82 Long term (current) use of aspirin; Z68.27 Body mass index [BMI] 27.0-27.9, adult

== ENCOUNTER → 2019-04-13 | Outpatient (CLI) | payer OTHER ==
[~2019-04-13] MED LIST changes: +AVODART0.5 M1 PO; +Anusol Hc,Anuco25 MG R; +CEFUROXIME AXE250 MG PO; +HYDROCODONE-AC1 EACH PO; +LEVOTHYROXINE150 MCG PO; +LEVOXYL150 MCG PO; +MORPHINE S20 MG/1 M1 PO; +OMEPRAZOLE20 M2 PO; +TAMSULOSIN HCL0.4 MG PO
[2019-04-13 12:05] LABS: BASO % 0.4 % (0.0-1.0); EOS # 0.2 10*3/uL (0.0-0.4); EOS % 2.1 % (1.0-4.0); HEMATOCRIT 36.4 % (42.0-52.0); HEMOGLOBIN 10.9 g/dl (14.0-18.0); LYMPH # 1.9 10*3/uL (1.3-4.4); LYMPH % 26.9 % (27.0-41.0); MEAN CELL VOLUME 90.8 fl (80.0-94.0); MEAN CORPUSCULAR HGB 27.2 pg (27.0-31.0); MEAN CORPUSCULAR HGB CONC 29.9 g/dl (33.0-37.0); MEAN PLATELET VOLUME 10.4 fl (9.6-12.3); MONO # 0.6 10*3/uL (0.1-1.0); MONO % 7.9 % (3.0-9.0); NEUT # 4.4 10*3/uL (2.3-7.9); NEUT % 62.1 % (47.0-73.0); PLATELET COUNT AUTOMATED 271 10*3/uL (130-400); RED BLOOD COUNT 4.01 10*6/uL (4.50-5.90); RED CELL DISTRI WIDTH 17.2 % (0-14.5); WHITE BLOOD COUNT 7.1 10*3/uL (4.8-10.8)
[2019-04-13 12:38] LABS: ALBUMIN 2.2 gm/dl (3.1-4.5); BUN 12 mg/dl (7-24); CHLORIDE 111 mmol/L (98-107); CHOLESTEROL 153 mg/dL (<200); CREATININE 1.14 mg/dL (0.70-1.30); FREE T4 0.79 ng/dl (0.76-1.46); HDL CHOLESTEROL 25 mg/dl (40-60); LDL CHOLESTEROL 100 mg/dL (9-159); POTASSIUM 3.9 mmol/L (3.5-5.1); SGOT/AST 81 IU/L (3-35); SGPT/ALT 51 U/L (12-78); SODIUM 143 mmol/L (136-145); TOTAL PROTEIN 6.8 gm/dL (6.4-8.2); TRIGLYCERIDES 139 mg/dl (<150); VLDL CHOLESTEROL 28 mg/dL (6-40)
[2019-04-13 12:39] LABS: ALKALINE PHOSPHATASE 194 U/L (45-117)
[2019-04-13 13:40] LABS: VITAMIN D, 25-HYDROXY 25.6 ng/mL (30-100)
== END | disposition home or self-care (01) ==
LOC: LAB 11:25
PROVIDERS: Internal Medicine
DX: Z12.5 Encounter for screening for malignant neoplasm of prostate (principal); E05.90 Thyrotoxicosis, unspecified without thyrotoxic crisis or storm; E03.9 Hypothyroidism, unspecified; D52.9 Folate deficiency anemia, unspecified; M06.9 Rheumatoid arthritis, unspecified; E55.9 Vitamin D deficiency, unspecified; R53.81 Other malaise

== ENCOUNTER 2019-07-31 19:32 | Inpatient (IN) | payer OTHER ==
[~2019-07-31] VITALS: Ht 175.3 cm; Wt 108.4 kg
--- NOTE | ~2019-07-31 | DS ---
[place], [place] DISCHARGE SUMMARY NAME: GENO RICHARDSON [facility] #: [id number] UNIT #: [id number] ROOM: 508 DOCTOR: GARFIELD RODRIGUES MD BIRTHDATE: [birth year] DOS: 08/03/2019 DISCHARGE DIAGNOSES: 1. Acute retention of urine 2. Chronic prostatism. 3. Urinary tract infection with Escherichia coli. 4. Hepatoma with metastatic disease, on hospice care. 5. Obstructive jaundice. 6. Transaminitis. 7. Major depression, moderate. 8. Hypothyroidism. 9. Protein-calorie malnutrition. 10. Benign hypertension. 11. History of pacemaker placement. HOSPITAL COURSE: The patient comes in, unable to void for a few hours, does not have any new complaints, had some burning before this happened, was taking some fqwt-kfj-lvkkbsi [place] also. After admission, he was placed on Flomax in addition to the Avodart. Blood cultures and urine cultures were sent. The patient was placed on IV fluids, IV antibiotics. A Maravilla catheter was inserted. Urine culture grew E. coli. Blood cultures are negative. The patient's Maravilla catheter was since removed and he has been voiding without any problems. His white cell count is normal, hemoglobin and hematocrit 9.9 and 30.4. He also had evidence of acute kidney injury, possibly from ATN from infection. This has corrected the BUN, creatinine has improved. GFR is 49 this morning. The patient is stable and can be discharged back to home. He is on hospice care at home. He is advised to follow with Dr. Bhagat. The patient also presents with diarrhea and some rectal pain. Anusol suppository was given. No external hemorrhoids were noted. Clostridium difficile titers were negative. DISCHARGE MEDICATIONS: Tamsulosin 0.4 mg daily, hydrocortisone suppository at bedtime for 5 more days, Ceftin 250 twice a day, Avodart 0.5 daily, omeprazole 20 daily, morphine 10 q. 2 hours p.r.n., levothyroxine 150 mcg daily. [place], [place] DISCHARGE SUMMARY NAME: GENO RICHARDSON UNIT #: [id number] ROOM: 508 DOCTOR: GARFIELD RODRIGUES MD BIRTHDATE: [birth year] GARFIELD RODRIGUES MD CM:SUSI 0 4 GARFIELD RODRIGUES MD 08/03/19954 interface
--- NOTE | ~2019-07-31 | PR ---
[place], [place] PROGRESS NOTE NAME: GENO RICHARDSON [facility] #: [id number] UNIT #: [id number] ROOM: 508 DOCTOR: GARFIELD RODRIGUES MD BIRTHDATE: [birth year] DOS: SUBJECTIVE: The patient is doing well, does not have any new complaints. He is voiding well. OBJECTIVE: VITAL SIGNS: Blood pressure is 103/57, pulse of 75, respirations 18, and temperature 97.7. LUNGS: Clear. HEART: Regular. ABDOMEN: Obese, soft, some minimal evidence of ascites noticed. EXTREMITIES: Without any edema. ASSESSMENT AND PLAN: 1. Acute retention of urine, resolved. 2. Urinary tract infection with Escherichia coli, which is sensitive to floxins as well as cephalosporins, prescription will be given. 3. Hepatoma, on hospice care, which shows chronic elevation of SGOT and SGPT. 4. Chronic kidney disease, stable. GARFIELD RODRIGUES MD CM:PNTRANS [id number] GARFIELD RODRIGUES MD 08/04/19 0236 interface
--- NOTE | ~2019-07-31 | PR ---
[place], [place] PROGRESS NOTE NAME: GENO RICHARDSON [facility] #: [id number] UNIT #: [id number] ROOM: 508 DOCTOR: GARFIELD RODRIGUES MD BIRTHDATE: [birth year] DOS: 08/02/2019 SUBJECTIVE: The patient is resting, does not have any complaints this morning. His Maravilla catheter was removed yesterday and he has been voiding well without any hesitation. OBJECTIVE: VITAL SIGNS: Graphic trend shows a pressure of 112/56 at midnight and this morning his blood pressure is 80/40, pulse of 70, respirations 18, temperature 97.5. LUNGS: Clear. HEART: Regular. ABDOMEN: Obese, soft, nontender. EXTREMITIES: Without any edema. SKIN: Slightly yellow this morning. LABORATORY DATA: Blood culture shows no bacterial growth. Urine culture shows gram-negative bacteria, identification is not available. ASSESSMENT AND PLAN: 1. Metastatic liver disease, primary most likely hepatoma. The patient is to continue supportive care. 2. Urinary tract infection with acute retention of urine, on IV antibiotics, awaiting the culture results. 3. Hypotension, possibly from poor p.o. intake, one bolus of 500 mL of normal saline will be given today. Continue his home medications right now. 4. Adult failure to thrive. He lives at home alone and does have a son who helps with his health care needs. He does not want to go to a rehab. The plan is to discharge him to home when he is more stable. GARFIELD RODRIGUES MD CM:PNTRANS [id number] GARFIELD RODRIGUES MD 08/03/19 0330 interface
--- NOTE | ~2019-07-31 | WRIGHTHP ---
[place], [place] PATIENT HISTORY AND PHYSICAL EXAM NAME: GENO RICHARDSON [facility] #: [id number] UNIT #: [id number] ROOM: 508 DOCTOR: GARFIELD RODRIGUES MD BIRTHDATE: [birth year] DOS: 07/31/2019 HISTORY OF PRESENT ILLNESS: This patient is 79 years old. The patient says he could not void at all, so decided to come into the Emergency Room. He would stand for minutes and would just dribble. He had acute retention of urine in the ER, was given a Maravilla catheter and was admitted. He had also CT scan of the abdomen and pelvis, which was negative. The patient tells me he has not had any trouble with his prostate in the past. He denies having any fever or chills. He did take some Denisse-Decker before this happened. Denies having any nausea, any emesis, but has had some diarrhea. PAST MEDICAL HISTORY: Significant for: 1. Metastatic liver disease. 2. Obstructive jaundice in the past. 3. Adult failure to thrive. 4. Major depression, moderate. 5. Hypothyroidism. 6. Diastolic CHF by history. 7. Protein-calorie malnutrition, severe. 8. Benign hypertension. 9. History of pacemaker placement. MEDICATIONS: That he is on currently are Avodart 0.5 daily, omeprazole 20 daily, morphine 10 mg q. 2 hours p.r.n. SOCIAL HISTORY: Nonsmoker. PHYSICAL EXAMINATION: GENERAL: He is awake and alert and oriented. VITAL SIGNS: Graphic trend shows a pressure 122/76, pulse of 78, respirations 14. HEAD AND NECK: Within normal limits. LUNGS: Clear. HEART: Regular. ABDOMEN: Obese, soft, nontender. EXTREMITIES: Without any edema. No external hemorrhoids noticed. ASSESSMENT AND PLAN: 1. Acute urinary retention. The patient is ordered a Maravilla catheter, which he wants to have removed this morning. Urinalysis has been refluxed for possible urinary tract infection. The patient has been placed on Rocephin IV, IV fluids. We will place him on Flomax and discontinue the catheter. If he develops no further retention, the plan is to discharge him to home tomorrow. 2. Diarrhea of unknown etiology. Clostridium difficile titers have been ordered. He has normal white cell count and no fevers. 3. Chronic kidney disease, kidney functions are stable and has not shown much decline. 4. Metastatic liver disease with chronic pain control on pain medications. [place], [place] PATIENT HISTORY AND PHYSICAL EXAM NAME: GENO RICHARDSON UNIT #: [id number] ROOM: [facility] DOCTOR: GARFIELD RODRIGUES MD BIRTHDATE: [birth year] GARFIELD RODRIGUES MD CM:HISPHYS:PATIENT HISTORY AND PHYSICAL EXAMINATION [id number] GARFIELD RODRIGUES MD 08/01/19909 interface
[~2019-07-31 19:32] MED LIST changes: -AVODART0.5 M1 PO; -Anusol Hc,Anuco25 MG R; -CEFUROXIME AXE250 MG PO; -LEVOTHYROXINE150 MCG PO; -LEVOXYL150 MCG PO; -MORPHINE S20 MG/1 M1 PO; -OMEPRAZOLE20 M2 PO; -TAMSULOSIN HCL0.4 MG PO
[2019-07-31 19:34] VITALS: BP 102/60
[2019-07-31 20:19] LABS: BASO # 0.1 10*3/uL (0.0-0.1); BASO % 0.7 % (0.0-1.0); EOS # 0.2 10*3/uL (0.0-0.4); EOS % 2.1 % (1.0-4.0); HEMATOCRIT 33.6 % (42.0-52.0); HEMOGLOBIN 10.6 g/dl (14.0-18.0); LYMPH # 1.7 10*3/uL (1.3-4.4); LYMPH % 17.5 % (27.0-41.0); MEAN CELL VOLUME 84.4 fl (80.0-94.0); MEAN CORPUSCULAR HGB 26.6 pg (27.0-31.0); MEAN CORPUSCULAR HGB CONC 31.5 g/dl (33.0-37.0); MEAN PLATELET VOLUME 10.4 fl (9.6-12.3); MONO # 0.5 10*3/uL (0.1-1.0); MONO % 5.5 % (3.0-9.0); NEUT % 73.8 % (47.0-73.0); PLATELET COUNT AUTOMATED 482 10*3/uL (130-400); RED BLOOD COUNT 3.98 10*6/uL (4.50-5.90); RED CELL DISTRI WIDTH 19.9 % (0-14.5); WHITE BLOOD COUNT 9.5 10*3/uL (4.8-10.8)
[2019-07-31 20:31] LABS: ACT PARTIAL THROMBO TIME 33.6 SECONDS (20.0-32.1); INTERNATIONAL NORM RATIO 1.4 (2.0-3.5)
[2019-07-31 20:35] LABS: ALBUMIN 1.6 gm/dl (3.1-4.5); CREATININE 1.72 mg/dL (0.70-1.30); TOTAL PROTEIN 7.1 gm/dL (6.4-8.2)
[2019-07-31 20:35] LABS: BILIRUBIN 2+ (NEGATIVE); BLOOD TRACE-INTACT (NEGATIVE); CLARITY CLOUDY (CLEAR); COLOR YELLOW (YELLOW); GLUCOSE NEGATIVE (NEGATIVE); KETONE NEGATIVE (NEGATIVE); LEUKO ESTERASE 3+ (NEGATIVE); NITRITE NEGATIVE (NEGATIVE); SPECIFIC GRAVITY 1.015 (1.005-1.030)
[2019-07-31 20:53] LABS: BACTERIA 3+; EPITHELIAL CELLS 0-2; WBC 41-50 wbc/hpf (0-5)
[2019-07-31 22:11] VITALS: BP 110/70
[2019-07-31 22:19] VITALS: BP 116/77
--- NOTE | 2019-07-31 22:19 | NUR ---
Time: 2218 A 79 year old MALE admitted to 5E under services of DR. LILIA RAMIREZ,GARFIELD. Pt. arrived via bed from ER. Chief complaint: UTI,ACUTE KIDNEY INJURY,URINARY RETENTION. IVANNA KEITA
[2019-07-31] MEDS ORDERED: AVODART0.5 M1 PO (23:09)
[2019-07-31] MEDS ORDERED: OMEPRAZOLE20 M2 PO (23:10)
[2019-07-31] MEDS ORDERED: MORPHINE S20 MG/1 M1 PO (23:11)
[2019-07-31] MEDS ORDERED: LEVOXYL150 MCG PO (23:12)
--- NOTE | 2019-07-31 23:18 | NUR ---
CALLED DR. RODRIGUES, ORDERS GIVEN AND REVIEWED.
[2019-08-01] VITALS: BP 136/69
--- NOTE | 2019-08-01 04:00 | NUR ---
SLEEPING IN BED. RESP-EASY AND REGULAR. IVF INFUSING WITH NO PROBLEM. CALL LIGHT IN REACH.
--- NOTE | 2019-08-01 05:30 | NUR ---
PT RESTING IN BED. RESP-EASY AND REGULAR. IVF INFUSING WITH NO PROBLEM. CALL LIGHT IN REACH.
[2019-08-01 08:00] VITALS: BP 95/50
--- NOTE | 2019-08-01 08:21 | NUR ---
IN TO SEE PATIENT.
--- NOTE | 2019-08-01 08:26 | NUR ---
PHYSICAL THERAPY Nursing screen received and chart reviewed. Please order PT evaluation if decline in functional mobility presents. Thank you. Katelynn Rios,PT,DPT.
--- NOTE | 2019-08-01 08:31 | NUR ---
Nursing screen received and chart reviewed. Patient admitted with UTI and inability to void. If patient should have a decline in ADls then refer to OT. Thank you. Nena Bishop OTr/L
--- NOTE | 2019-08-01 09:00 | NUR ---
Dishcloth Folder in to talk to patient. Patient states lives at home alone with his neighbors occasionally checking in on him. There are 0 steps in the home. Physician: Dr. Oswaldo Bhagat Pharmacy: [facility] health services: none Patient's level of ADLs: independent Patient has working utilities: yes DME: none Follow-up physician's appointment after d/c: he prefers to make his own follow up appt after discharge Does patient want to access PORTAL?: no Discharge plan discussed with patient. He lives at home with his neighbors occasionally checking in on him. He is independent in his ADLs and ambulation. Discussed short term SNF and home health care services and he denies any home needs at this time. When medically stable he will be discharged to home. His son will transport on discharge. ALYX SIMON
--- NOTE | 2019-08-01 10:45 | NUR ---
SIMON CATHETER REMOVED PER ORDER.
[2019-08-01 12:00] VITALS: BP 112/52
[2019-08-01 16:00] VITALS: BP 97/50
[2019-08-01 20:00] VITALS: BP 100/46
--- NOTE | 2019-08-01 21:00 | NUR ---
PT RESTING IN BED. TOLERATED ROUTINE MED WITH NO PROBLEM. IVF INFUSING WITH NO PROBLEM. CALL LIGHT IN REACH.
[2019-08-02] VITALS: BP 112/56
--- NOTE | 2019-08-02 | NUR ---
RESTING IN BED. RESP-EASY AND REGULAR. IVF INFUSING WITH NO PROBLEM. NO C/O AT THIS TIME. CALL LIGHT IN REACH. SEE SHIFT ASSESSMENT.
--- NOTE | 2019-08-02 04:00 | NUR ---
SLEEPING IN BED. RESP-EASY AND REGULAR. IVF INFUSING WITH NO PROBLEM. CALL LIGHT IN REACH.
--- NOTE | 2019-08-02 06:00 | NUR ---
PT TOLERATED ROUTINE MED WITH NO PROBLEM. NO C/O AT THIS TIME. IVF INFUSING WITH NO PROBLEM. CALL LIGHT IN REACH. BED ALARM ON.
[2019-08-02 08:00] VITALS: BP 82/48
--- NOTE | 2019-08-02 08:19 | NUR ---
NOTIFIED REGARDING LOW BP THIS AM. BP 81/46. PT ASYMPTOMATIC. NEW ORDERS RECEIVED.
--- NOTE | 2019-08-02 08:22 | NUR ---
500CC IV BOLUS INITIATED AT THIS TIME. WILL RECHECK BP AFTER COMPLETION.
--- NOTE | 2019-08-02 09:00 | NUR ---
Nuclear Cardiology Technologist in to see patient. No new needs or request at this time. He denies any home needs. When medically stable he will be discharged to home.
[2019-08-02 09:34] VITALS: BP 102/58
[2019-08-02 11:57] VITALS: BP 107/67
[2019-08-02] MEDS ORDERED: LEVOTHYROXINE150 MCG PO (12:06)
[2019-08-02 16:00] VITALS: BP 103/57
--- NOTE | 2019-08-02 22:00 | NUR ---
PT RESTING IN BED. IVF INFUSING WITH NO PROBLEM. NO C/O AT THIS TIME. CALL LIGHT IN REACH. BED ALARM ON.
--- NOTE | 2019-08-03 | NUR ---
PT RESTING IN BED WITH HOB ELEVATED. RESP-EASY AND REGULAR. NO C/O AT THIS TIME. IVF INFUSING WITH NO PROBLEM. CALL LIGHT IN REACH. SEE SHIFT ASSESSMENT.
--- NOTE | 2019-08-03 04:00 | NUR ---
RESTING INB ED. NO C/O AT THIS TIME. WATCHING TV. IVF INFUSING WITH NOPROBLEM. CALL LIGHT IN REACH. BED ALARM ON.
--- NOTE | 2019-08-03 06:00 | NUR ---
PT RESTING IN BED. ERSP-EASY AND REGULAR. TOLERATED ROUTINE MED. IVF INFUSING WITH NO PROBLEM. NO C/O AT THIS TIME. CALL LIGHT IN REACH.
[2019-08-03 07:12] LABS: BASO # 0.1 10*3/uL (0.0-0.1); EOS # 0.2 10*3/uL (0.0-0.4); EOS % 2.8 % (1.0-4.0); HEMATOCRIT 30.4 % (42.0-52.0); HEMOGLOBIN 9.9 g/dl (14.0-18.0); LYMPH # 1.4 10*3/uL (1.3-4.4); MEAN CELL VOLUME 81.7 fl (80.0-94.0); MEAN CORPUSCULAR HGB 26.6 pg (27.0-31.0); MEAN CORPUSCULAR HGB CONC 32.6 g/dl (33.0-37.0); MEAN PLATELET VOLUME 10.8 fl (9.6-12.3); MONO # 0.5 10*3/uL (0.1-1.0); MONO % 7.6 % (3.0-9.0); NEUT # 4.5 10*3/uL (2.3-7.9); PLATELET COUNT AUTOMATED 345 10*3/uL (130-400); RED BLOOD COUNT 3.72 10*6/uL (4.50-5.90); RED CELL DISTRI WIDTH 20.6 % (0-14.5); WHITE BLOOD COUNT 6.7 10*3/uL (4.8-10.8)
[2019-08-03 07:34] LABS: CREATININE 1.39 mg/dL (0.70-1.30); POTASSIUM 3.9 mmol/L (3.5-5.1)
[2019-08-03 07:35] LABS: ALBUMIN 1.4 gm/dl (3.1-4.5); CEA 2.5 ng/mL; TOTAL PROTEIN 6.6 gm/dL (6.4-8.2)
[2019-08-03 08:00] VITALS: BP 107/54
[2019-08-03] MEDS ORDERED: Anusol Hc,Anuco25 MG R (08:43)
[2019-08-03] MEDS ORDERED: TAMSULOSIN HCL0.4 MG PO (08:43)
[2019-08-03] MEDS ORDERED: CEFUROXIME AXE250 MG PO (08:43)
--- NOTE | 2019-08-03 10:00 | NUR ---
PT DISCHARGED AT THIS TIME. IV REMOVED AND PRESSURE DRESSING APPLIED. VERBALIZED UNDERSTANDING OF DISCHARGE INSTRUCTIONS INCLUDING PICKING UP SCRIPTS FROM PHARMACY.
== END 2019-08-03 10:00 | disposition home or self-care (01) | DRG 682 ==
LOC: ED 19:32 → 5E 21:22 → EDHOLD 21:22 → 5E 21:56
PROVIDERS: Physician Assistant; ADMIT Internal Medicine
DX: N17.0 Acute kidney failure with tubular necrosis (principal); E43 Unspecified severe protein-calorie malnutrition; N39.0 Urinary tract infection, site not specified; F32.1 Major depressive disorder, single episode, moderate; E46 Unspecified protein-calorie malnutrition; C22.0 Liver cell carcinoma; I50.32 Chronic diastolic (congestive) heart failure; I13.0 Hypertensive heart and chronic kidney disease with heart failure and stage 1 through stage 4 chronic kidney disease, or unspecified chronic kidney disease; Z66 Do not resuscitate; Z51.5 Encounter for palliative care; R62.7 Adult failure to thrive; N40.1 Benign prostatic hyperplasia with lower urinary tract symptoms; K62.89 Other specified diseases of anus and rectum; R33.8 Other retention of urine; N18.9 Chronic kidney disease, unspecified; G89.29 Other chronic pain; I95.9 Hypotension, unspecified; B96.20 Unspecified Escherichia coli [E. coli] as the cause of diseases classified elsewhere; E03.9 Hypothyroidism, unspecified; R19.7 Diarrhea, unspecified; Z95.0 Presence of cardiac pacemaker; Z68.35 Body mass index [BMI] 35.0-35.9, adult

== ENCOUNTER 2019-08-14 21:32 | Inpatient (IN) | payer OTHER ==
[~2019-08-14] VITALS: Ht 175.3 cm; Wt 96.3 kg
--- NOTE | ~2019-08-14 | PR ---
[place], [place] PROGRESS NOTE NAME: GENO RICHARDSON [facility] #: [id number] UNIT #: [id number] ROOM: 420 DOCTOR: CHRIS ALVARENGA MD BIRTHDATE: [birth year] DOS: 08/16/2019 SUBJECTIVE: The patient feels very tight in his abdomen and has even more tightness when he coughs, but his pains have has improved. OBJECTIVE: VITAL SIGNS: Blood pressure 107/69, heart rate of 72 beats per minute, breathing 18-20 times per minute, temperature of 98 degrees Fahrenheit. GENERAL APPEARANCE: Generalized weakness. The patient is jaundiced. ABDOMEN: Tense and distended. IMPRESSION: 1. The patient with metastatic malignancy in his liver with liver failure and INR of 1.4 along with liver cirrhosis and tense ascites. 2. Tense ascites and significant abdominal pains, improved with fentanyl patch, which was started yesterday and he takes morphine if needed. The patient is waiting for paracentesis by Radiology tomorrow. 3. Ambulatory dysfunction and generalized weakness, advanced adult failure to thrive. The patient is working in physical therapy. 4. Gastroesophageal reflux disease and esophagitis, asymptomatic with omeprazole. 5. Severe protein calorie malnutrition and adult failure to thrive. The patient to be continued on hospice after discharged from the hospital. He maintained a DNR comfort care code status. 6. Benign essential hypertension. Blood pressures are controlled. 7. Hypothyroidism, replaced with levothyroxine. 8. Jaundice and elevation of liver enzymes secondary to liver metastasis and obstructive jaundice. CHRIS ALVARENGA MD CM:PNTRANS [id number] CHRIS ALVARENGA MD 08/16/19 5512 interface
--- NOTE | ~2019-08-14 | DS ---
[place], [place] DISCHARGE SUMMARY NAME: GENO RICHARDSON UNIT #: [id number] ROOM: 420 DOCTOR: LYLE RAMIREZCHRIS J BIRTHDATE: [birth year] DOS: 08/18/2019 DISCHARGE DIAGNOSES: 1. Hepatic malignancy. The patient on end-of-life care with hospice. 2. [facility]. 3. Advanced liver cirrhosis, portal hypertension, ascites. 4. Severe abdominal pain secondary to liver cancer and tense ascites. 5. Ambulatory dysfunction and advanced adult failure to thrive. 6. Jaundice from liver failure. 7. Severe protein calorie malnutrition from malignancy. 8. Benign essential hypertension. 9. Hypothyroidism. The patient was admitted to [facility]. The patient was admitted with abdominal distention, significant abdominal pain and discomfort and was found to have large tense ascites from liver cirrhosis and liver malignancy and he was jaundiced. The patient was taken for paracentesis and is feeling better and started on a fentanyl patch along with p.r.n. morphine that he was taking. The patient is feeling much better with this treatment and he is being [facility]. Liver failure from liver cirrhosis and liver malignancy. INR was 1.4. Advanced adult failure to thrive and ambulatory dysfunction. The patient worked with physical therapy and occupational therapy. Severe protein-calorie malnutrition. The patient was followed by Dietary. This is result of advanced liver cancer. Benign essential hypertension was controlled. Blood pressures were monitored. Hypothyroidism, replaced with levothyroxine. Obstructive jaundice from liver metastasis and liver cirrhosis. The patient's long-term prognosis is poor. Large tense ascites from liver cancer and cirrhosis, treated with paracentesis. A 4-1/2 liters of fluid was removed for patient comfort. INR 1.4. BUN and creatinine 20 and 1.7. White cell count 12,700, hemoglobin 10.5, normal platelets. DISCHARGE MANAGEMENT: Morphine 10 mg every hour, liquid concentrate as needed for breakthrough pain, fentanyl patch 50 mcg to be changed every 3 days, Avodart 0.5 mg daily, levothyroxine 150 mcg daily, omeprazole 20 mg daily. [place], [place] DISCHARGE SUMMARY NAME: GENO RICHARDSON UNIT #: [id number] ROOM: 420 DOCTOR: CHRIS ALVARENGA MD BIRTHDATE: [birth year] CHRIS ALVARENGA MD CM:SUSI [id number] CHRIS ALVARENGA MD 08/18/19 1604 interface
--- NOTE | ~2019-08-14 | PR ---
[place], [place] PROGRESS NOTE NAME: [facility]ENO [facility]ICHARDSON [facility] [id number] UNIT #: [id number] ROOM: 420 DOCTOR: CHRIS ALVARENGA MD BIRTHDATE: [birth year] DOS: 08/17/2019 SUBJECTIVE: The patient is still distended, although his pains have improved with fentanyl patch. OBJECTIVE: GENERAL APPEARANCE: The patient is alert and oriented x 3, in no visible distress, generalized weakness. VITAL SIGNS: Blood pressure 125/66, heart rate 73 beats per minute, breathing 20 times per minute, temperature 98 degrees Fahrenheit. HEENT AND NECK: Exam within normal limits except for jaundice. CARDIOVASCULAR SYSTEM: Heart rate is regular in rate and rhythm. S1 and S2 normally audible. LUNGS: Clear to auscultation. ABDOMEN: Abdominal distention. EXTREMITIES: Without significant cyanosis or edema. IMPRESSION: 1. Metastatic cancer of the liver with liver failure. INR of 1.4. Liver cirrhosis and tense ascites. The patient waiting for paracentesis by Radiology today. 2. Ambulatory dysfunction. The patient working with Physical Therapy. 3. Advanced adult failure to thrive. The patient on hospice care outside the hospital. 4. Abdominal pains being treated with fentanyl patch and p.r.n. morphine, much better controlled. 5. Severe protein calorie malnutrition and adult failure to thrive secondary to advanced malignancy. The patient is being followed by Dietary. 6. Benign essential hypertension, treated and controlled. 7. Hypothyroidism, replaced with levothyroxine. 8. Obstructive jaundice from liver metastasis and elevated liver enzymes. CHRIS ALVARENGA MD CM:PNTRANS [id number] [id number] CHRIS ALVARENGA MD 08/17/19 1500 interface
--- NOTE | ~2019-08-14 | WRIGHTHP ---
[place], [place] PATIENT HISTORY AND PHYSICAL EXAM NAME: GENO RICHARDSON [facility] #: [id number] UNIT #: [id number] ROOM: 420 DOCTOR: CHRIS ALVARENGA MD BIRTHDATE: [birth year] DOS: HISTORY OF PRESENT ILLNESS: The patient is an 79-year-old gentleman under hospice care for; 1. Advanced liver malignancy and metastatic disease. 2. Large tense ascites with abdominal pain. 3. Obesity, BMI of 31.3. 4. Liver failure and jaundice with INR of 1.4 and obstructive jaundice related to malignancy. 5. The patient under hospice care. 6. Hypothyroidism, replaced with levothyroxine. 7. Gastroesophageal reflux disease and esophagitis, asymptomatic with omeprazole. 8. Benign prostatic hypertrophy and urine retention, asymptomatic with Flomax and dutasteride. 9. Severe protein-calorie malnutrition. 10. History of pacemaker placement. 11. Benign essential hypertension. The [facility] for increased abdominal distention, shortness of breath and abdominal pains. The patient was admitted with a DNR comfort care code status and ultrasound of the abdomen and pelvis were ordered, which have not been reported. I also ordered a paracentesis by Invasive Radiology who are not available today for patient comfort. Abdominal distention and pain with shortness of breath to be treated with paracentesis and also I will start him on a fentanyl patch and continue p.r.n. morphine and Ativan as needed. Advanced adult failure to thrive and very poor prognosis with liver cancer and metastasis and liver failure. The patient is jaundiced with elevated liver enzymes. Urinary retention treated with dutasteride, asymptomatic. Severe protein-calorie malnutrition with albumin level of 1.2 related to malignancy. LABORATORY DATA: The patient's albumin level of 1.2, bilirubin 3.9, AST 839, ALT 554, alkaline phosphatase 424. Sodium low at 130, creatinine elevated to 1.7. IMPRESSION: 1. Acute obstructive jaundice related to liver cancer and metastasis. The patient to be kept comfortable only. 2. Pain from malignancy from liver cancer and tense ascites to be treated with fentanyl, morphine and paracentesis. 3. Hypothyroidism, replaced with levothyroxine. 4. Benign prostatic hypertrophy and urinary retention, asymptomatic with dutasteride. [place], [place] PATIENT HISTORY AND PHYSICAL EXAM NAME: GENO RICHARDSON UNIT #: [id number] ROOM: 420 DOCTOR: CHRIS ALVARENGA MD BIRTHDATE: [birth year] 5. Gastroesophageal reflux disease and esophagitis, asymptomatic with omeprazole. Follow closely and keep comfortable. CHRIS ALVARENGA MD CM:HISPHYS:PATIENT HISTORY AND PHYSICAL EXAMINATION [id number] CHRIS ALVARENGA MD 08/15/19 1108 interface
[~2019-08-14 21:32] MED LIST changes: +AVODART0.5 M1 PO; +Anusol Hc,Anuco25 MG R; +CEFUROXIME AXE250 MG PO; +LEVOTHYROXINE150 MCG PO; +LEVOXYL150 MCG PO; +MORPHINE S20 MG/1 M1 PO; +OMEPRAZOLE20 M2 PO; +TAMSULOSIN HCL0.4 MG PO
[2019-08-14 21:42] VITALS: BP 105/67
--- NOTE | 2019-08-14 21:42 | NUR ---
A 79, admitted to 4E, under the services of Dr. LYLE RAMIREZ,CHRIS Romo with a diagnosis of ASCITES, LIVER CA. Chief complaint is ABDOMINAL PAIN. Patient arrived via ambulance from assisted living facility. Initial assessment completed. Vital signs taken and recorded. DR. LYLE RAMIREZ,CHRIS Romo notified of admission to the unit. Orders received. Patient and/or family oriented to unit. [address] visitation policy reviewed. Clothing/patient valuable form completed. JENNIFER ARCHULETA
--- NOTE | 2019-08-14 21:59 | NUR ---
NOTIFIED DR. ALVARENGA OF ADMISSION. ORDERS RECEIVED.
--- NOTE | 2019-08-14 22:05 | NUR ---
CALLED [facility] TO GET A BACKGROUND ON PATIENT SINCE HE WAS A DIRECT ADMIT. THE ONLY THING REPORTED WAS HIS MEDICATIONS AND THAT HE HAS A THYROID ISSUE. THEY STATED HE HAS ONLY BEEN WITH THEM A COUPLE OF DAYS AND HE CAME FROM HOME PRIOR TO THEIR FACILITY. PATIENT IS A POOR HISTORIAN.
[2019-08-15] VITALS: BP 110/67
--- NOTE | 2019-08-15 01:40 | NUR ---
PATIENT SLEEPING QUIETLY IN BED. NO DISTRESS NOTED. CALL LIGHT WITHIN REACH.
--- NOTE | 2019-08-15 03:03 | NUR ---
24 HR chart check completed.
--- NOTE | 2019-08-15 04:41 | NUR ---
GENO RICHARDSON [id number] Please refer to the physician's history and physical for past medical history, comorbid conditions, and allergies. Diagnosis: ABDOMINAL PAIN ASCITES HISTORY CA LIVER Hawk Score: 17,AT RISK WOUND DESCRIPTIONS: This nurse was asked to evaluate patient. Upon assessment entire buttocks is red and blanchable at time of assessment. No open areas noted at time of assessment. Patient stated that he was itchy and scratched his lower back. No drainage at time of assessment. No redness noted at time of assessment. Surface the patient is resting on: Isoflex SKIN PREVENTION RECOMMENDATION: 1. Pressure redistribution support surface as appropriate 2. Elevate heels 3. Remove boots/TEDS every shift and reapply 4. Head of bed 30 degrees as tolerated 5. Assess nutrition and hydration 6. Manage moisture 7. Avoid the use of containment devices while in bed 8. Use absorptive products on surfaces limit layers of linens on bed 9. Turn and reposition every 1-2 hours in bed and every 1 hour in chair as tolerated 10. Weight shifts every 15 minutes while up in chair 11. Offloading with pillows or device to keep heels elevated off bed 12. Monitor skin at least every shift 13. Inspect under medical devices twice a day WOUND TREATMENT RECOMMENDATIONS: Wheelchair cushion when oob. Cleanse entire buttocks with soap and water and apply hydrguard everyshift and prn for soiling.
[2019-08-15 06:12] LABS: BASO % 0.2 % (0.0-1.0); EOS # 0.1 10*3/uL (0.0-0.4); EOS % 0.6 % (1.0-4.0); HEMATOCRIT 32.6 % (42.0-52.0); HEMOGLOBIN 10.5 g/dl (14.0-18.0); LYMPH # 1.3 10*3/uL (1.3-4.4); LYMPH % 10.3 % (27.0-41.0); MEAN CELL VOLUME 84.5 fl (80.0-94.0); MEAN CORPUSCULAR HGB 27.2 pg (27.0-31.0); MEAN CORPUSCULAR HGB CONC 32.2 g/dl (33.0-37.0); MEAN PLATELET VOLUME 10.4 fl (9.6-12.3); MONO # 1.2 10*3/uL (0.1-1.0); MONO % 9.7 % (3.0-9.0); NEUT # 9.9 10*3/uL (2.3-7.9); NEUT % 77.9 % (47.0-73.0); PLATELET COUNT AUTOMATED 431 10*3/uL (130-400); RED BLOOD COUNT 3.86 10*6/uL (4.50-5.90); RED CELL DISTRI WIDTH 19.7 % (0-14.5); WHITE BLOOD COUNT 12.7 10*3/uL (4.8-10.8)
[2019-08-15 06:28] LABS: ALBUMIN 1.2 gm/dl (3.1-4.5); CREATININE 1.76 mg/dL (0.70-1.30); POTASSIUM 4.2 mmol/L (3.5-5.1)
[2019-08-15 06:29] LABS: TOTAL PROTEIN 6.7 gm/dL (6.4-8.2)
[2019-08-15 08:00] VITALS: BP 92/50
[2019-08-15 08:34] LABS: INTERNATIONAL NORM RATIO 1.4 (2.0-3.5)
--- NOTE | 2019-08-15 09:45 | NUR ---
DR ALVARENGA MADE AWARE THAT PARACENTISIS WAS UNABLE TO BE DONE TODAY AND COULD BE DONE TOMORROW (WEDNESDAY). NO ORDERS RECIEVED.
--- NOTE | 2019-08-15 11:00 | NUR ---
Women'S Activities Adviser in to talk to patient. Patient states lives at [facility]. There are 0 steps in the home. Physician: Dr. Oswaldo Bhagat Pharmacy: [facility] Home health services: none Patient's level of ADLs: MINIMAL ASSIST Patient has working utilities: yes DME: cane, walker Follow-up physician's appointment after d/c: Dr. Bhagat will follow patient at [facility] on discharge Does patient want to access PORTAL?: no Discharge plan discussed with patient. He is sitting up in bed eating breakfast without distress noted. He lives at [facility] and plans to return there upon discharge. He is independent in his ADLs and uses a cane or a walker for ambulation. Discussed home health care services and he denies any home needs at this time. When medically stable he will be discharged to [facility]. digital sales planner following. He is unsure of wo provide transportation at this time. ALYX SIMON
--- NOTE | 2019-08-15 11:38 | NUR ---
EDUCATED PATIETN ON FENTYNAL PATCH. PLACED ON LEFT ARM. PT STATES NO NEEDS AT THIS TIME
--- NOTE | 2019-08-15 14:56 | NUR ---
PHYSICAL THERAPY Physical therapy evaluation attempted. Patient reports feeling "bloated" and requests PT after his procedure. Plan to try PT at a later time/date. Thank you. Katelynn Rios,PT,DPT
--- NOTE | 2019-08-15 14:56 | NUR ---
Occupational Therapy evaluation offered this date. Patient reported that he felt like he "was having triplets" while rubbing his belly. He says he was supposed to have a procedure today but it is now scheduled for tomorrow. Patient in agreement to have OTR recheck with patient after the procedure for the need for an OT eval. Thank you. Nena Bishop OTR/Damián
[2019-08-15 16:00] VITALS: BP 108/83
--- NOTE | 2019-08-15 19:41 | NUR ---
Patient resting quietly with no c/o discomfort. Respirations easy and regular. Vital signs stable. No overt distress. JENNIFER ARCHULETA
[2019-08-15 20:00] VITALS: BP 104/71
--- NOTE | 2019-08-15 20:38 | NUR ---
24 HR chart check completed.
[2019-08-16] VITALS: BP 105/61
--- NOTE | 2019-08-16 05:10 | NUR ---
PATIENT LAYING IN BED. TOOK AM MEDICATIONS WITHOUT DIFFICULTY. NO COMPLAINTS OF PAIN AT THIS TIME. NO ACUTE DISTRESS NOTED. CALL LIGHT WITHIN REACH. BED ALARM ON FOR PATIENT SAFETY.
[2019-08-16 08:00] VITALS: BP 107/69
--- NOTE | 2019-08-16 09:39 | NUR ---
Spoke to antonella in radiology. interventional radiologist unavailable today. Physician giacomo Thakur should be available tomorrow.
--- NOTE | 2019-08-16 11:00 | NUR ---
Pumper Gager Apprentice in to see patient. No new needs or request at this time. When medically stable she will be discharged to [facility]. Per multidisciplinary meeting patient was supposed to have a paracentesis today. IR is not available and paracentesis will be scheduled for tomorrow. Discussed discharge planning with Dr. Bhagat and patient will return to [facility] under hospice services when medically stable.
--- NOTE | 2019-08-16 11:40 | NUR ---
Awaiting paracentesis before OT evaluation per patient request. Andrew Bishop OTR/L
--- NOTE | 2019-08-16 11:50 | NUR ---
PHYSICAL THERAPY Patient awaiting paracentesis this date. Request to attempt PT evaluation after procedure is complete. Thank you. Katelynn Rios,PT,DPT
[2019-08-16 15:59] VITALS: BP 106/71
--- NOTE | 2019-08-16 21:13 | NUR ---
24 HR chart check completed.
[2019-08-17] VITALS: BP 125/66
[2019-08-17 08:00] VITALS: BP 94/65
--- NOTE | 2019-08-17 09:46 | NUR ---
Discussed discharge planning with Dr. Bhagat. Plan is for patient to be discharged tomorrow since patient is having paracentesis today.
--- NOTE | 2019-08-17 11:00 | NUR ---
Director Sales Training in to see patient. No new needs or request at this time. When medically stable he will be discharged to [facility] under their hospice services.
--- NOTE | 2019-08-17 15:38 | NUR ---
Interventional radiology not available this date per nursing. Patient to have paracentesis tomorrow. Nena Bishop OTR/l
[2019-08-17 15:57] VITALS: BP 109/94
--- NOTE | 2019-08-17 16:38 | NUR ---
PHYSICAL THERAPY Interventional radiology not available this date per nursing. Patient to have paracentesis tomorrow. Thank you. Katelynn Rios,PT,DPT
[2019-08-17 20:00] VITALS: BP 126/68
[2019-08-18] VITALS: BP 117/60
--- NOTE | 2019-08-18 00:25 | NUR ---
RESTING IN BE WITH HOB ELEVATED. SIDE RAILS UP X'S 2. CALL LIGHT IN REACH. ALERT. HEP LOCK INTACT. ABD REMAINS DISTENDED AND FIRM. PT COLOR REMAINS JAUNDICED. NO C/O'S PAIN OR DISCOMFORT VOICED AT PRESENT.
--- NOTE | 2019-08-18 04:10 | NUR ---
RESTING IN BED WITH EYES CLOSED. APPEARS TO BE SLEEPING.
--- NOTE | 2019-08-18 06:08 | NUR ---
RESTING IN BED WITHOUT C/O'S. NO DISTRESS NOTED.
--- NOTE | 2019-08-18 07:51 | NUR ---
Updated clinicals faxed to [facility] for review, patient ok to return when medically stable for discharge.
[2019-08-18 08:00] VITALS: BP 100/45
--- NOTE | 2019-08-18 10:18 | NUR ---
PHYSICAL THERAPY Patient is awaiting paracentesis that was rescheduled for this date. Thank you. Katelynn Rios,PT,DPT
--- NOTE | 2019-08-18 10:30 | NUR ---
PT TO ULTRASOUND FOR PARACENTESIS.
--- NOTE | 2019-08-18 10:56 | NUR ---
Patient waiting for paracentesis re-scheduled for today. Nena Bishop OTR/l
--- NOTE | 2019-08-18 11:00 | NUR ---
Hand Ironer in to see patient. No new needs or request at this time. When medically stable he will be discharged to [facility] under their hospice services. Per multidisciplinary discharge planning meeting patient will be discharged following paracentesis to [facility] where he is a LTC resident. site planner following.
--- NOTE | 2019-08-18 12:00 | NUR ---
DR ALVARENGA IN TO SEE PT. PT TO BE DISCHARGED TODAY.
[2019-08-18] MEDS ORDERED: Duragesic 50 M50 MCG T (12:53)
--- NOTE | 2019-08-18 14:24 | NUR ---
Patient is discharged to return to [facility]; transportation scheduled for 4PM with [facility]. Attempted to notify [facility] several times, but getting a constant busy signal. Also attempted to contact [employer] [facility] several times and left messages, no return call. Faxed clinical updates. Nursing/[facility] room and patients daughter in law Yesika all notified.
--- NOTE | 2019-08-18 15:55 | NUR ---
PT REPORT GIVEN TO STAFF AT RECEIVING FACILITY.
--- NOTE | 2019-08-18 16:05 | NUR ---
Discharge instructions reviewed with patient. Patient receptive and verbalizes understanding. Follow-up care arranged. Written instructions given to patient. JENNIFER JANE
--- NOTE | 2019-08-21 08:55 | NUR ---
Occupational therapy orders received and chart reviewed. Patient has since been discharged prior to OT evaluation. Thank you for the referral. Clarisse Ko OTR/L
== END 2019-08-18 16:05 | disposition hospice, home (50) | DRG 435 ==
LOC: 4E 21:32
PROVIDERS: ADMIT Internal Medicine
PROC: 0W9G3ZZ Drainage of Peritoneal Cavity, Percutaneous Approach (ICD-10-PCS; principal; 2019-08-18)
DX: C22.9 Malignant neoplasm of liver, not specified as primary or secondary (principal); K83.1 Obstruction of bile duct; E43 Unspecified severe protein-calorie malnutrition; R18.0 Malignant ascites; K76.6 Portal hypertension; R18.8 Other ascites; K74.60 Unspecified cirrhosis of liver; I10 Essential (primary) hypertension; E03.9 Hypothyroidism, unspecified; Z51.5 Encounter for palliative care; R62.7 Adult failure to thrive; R26.2 Difficulty in walking, not elsewhere classified; Z68.31 Body mass index [BMI] 31.0-31.9, adult; K21.0 Gastro-esophageal reflux disease with esophagitis; N40.1 Benign prostatic hyperplasia with lower urinary tract symptoms; R33.8 Other retention of urine; Z95.0 Presence of cardiac pacemaker; Z66 Do not resuscitate